=== PATIENT | female | born 1965 | race African-American/Black ===

== ENCOUNTER 2017-12-18 11:47 | Inpatient (IN) | payer BC, OTHER ==
[2017-12-11 14:03] VITALS: BMI 36.9
[2017-12-18] MEDS ORDERED: VANCOMYCIN 1,000 MG VIAL (RESTRICTED TO ID ONLY) ONE (13:56)
[2017-12-18] MEDS ORDERED: TRANEXAMIC ACID 1000 MG/10 ML VIAL ONE ×2 (13:56→18:43)
[2017-12-18] MEDS ORDERED: ceFAZolin SODIUM 1 GM VIAL ONE ×2 (13:56→18:42)
[2017-12-18] MEDS ORDERED: ONDANSETRON 4 MG/2 ML VIAL ONE (13:56)
[2017-12-18] MEDS ORDERED: DEXAMETHASONE SOD PHOSPHATE/PF 10 MG/ML SDV ONE (13:59)
[2017-12-18] MEDS ORDERED: BUPIVACAINE HCL/PF (5 MG/ML) 30 ML VIAL IJ ONE ×2 (14:00→15:04)
[2017-12-18] MEDS ORDERED: MIDAZOLAM HCL 2 MG/2 ML SINGLE DOSE VIAL ONE ×2 (14:00→15:04)
[2017-12-18] MEDS ORDERED: BUPIVACAINE LIPOSOME/PF (EXPAREL) 266 MG/20 ML VIAL ONE (15:04)
[2017-12-18] MEDS ORDERED: PROPOFOL 20 ML ONE ×2 (16:49→17:54)
[2017-12-18] MEDS ORDERED: oxyCODONE HCL 5 MG TABLET PO PRN (16:51)
[2017-12-18] MEDS ORDERED: MAGNESIUM HYDROX 2400MG/30ML ORAL SUSPENSION 30 ML CUP PO PRN (18:54)
[2017-12-18] MEDS ORDERED: ONDANSETRON 4 MG/2 ML VIAL IVPUSH PRN (18:54)
[2017-12-18] MEDS ORDERED: MAG HYDROX/AL HYDROX/SIMETH 30 ML UNIT-DOSE CUP PO PRN (18:54)
[2017-12-18] MEDS ORDERED: LACTATED RINGERS SOLUTION 1,000 ML IV SCH (19:00)
--- NOTE | 2017-12-18 19:05 | PN ---
Progress Note (short form) - Note Progress Note: Surgery S/P R TKA POD #0 - Pain control. -DVT PPx: -Chemical: ASA 81 mg po BID x 6 weeks -Mechanical: SABINE's, SCD's -Incentive Spirometry. -PT/OT/Rehab, OOB. -WBAT RLE. -f/u drain output -f/u am labs. -Care per medical hospitalist team. 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 Abel George MD (Orthopaedic Surgery)
[2017-12-18] MEDS ORDERED: BENZOIN TINCTURE SWABSTICK TP ONE (19:17)
--- NOTE | 2017-12-18 20:39 | OP ---
DATE OF OPERATION: DATE OF DICTATION: 12/18/2017 SURGEON: Abel George M.D. MERCHANDISER: Wily George M.D., and Nara Chand PREOPERATIVE DIAGNOSIS: Tricompartment osteoarthritis right knee. POSTOPERATIVE DIAGNOSIS: Tricompartment osteoarthritis right knee. OPERATION PERFORMED: Right posterior stabilized total knee arthroplasty (Timur) subvastus approach. ANESTHESIA: Spinal with peripheral block and conscious sedation. ANTIBIOTICS GIVEN: 2 g Kefzol, 1 g vancomycin preoperative, 1 g Kefzol given at the time of release of tourniquet. TOURNIQUET TIME: 100 minutes. DESCRIPTION OF PROCEDURE: Patient was correctly identified, brought in operating room. Right lower extremity was prepped, pre-draped in the routine manner with Betadine scrub solution, wiped with alcohol, DuraPrep applied. The right knee was exposed via midline incision. Dissection was taken through the fascia to expose the entire quadriceps mechanism starting at the distal end of the tibial tubercle, coursing up along the medial parapatellar region alongside the medial aspect of the border of the patella ligament. The dissection was curved towards the posterior medial aspect of the femoral condyle towards the adductor canal and adductor hiatus. At that point, the fascia and epimysium were dissected sharply off the actual vastus medialis muscle. A plane created between the muscle and the capsule enabled sitting of a blunt Hohmann into this area, and the tissue deep to that which was the suprapatellar pouch and synovium of the pouch was extended longitudinally upwards to give easy access to subluxing the patella laterally over the lateral femoral condyle to gain exposure of the entire knee. Tricompartment osteoarthritis encountered. The jig cuts were made with the [employer] system. The patella was cut in accord with Johanna line from patella ligament to quadriceps tendon. The femur was cut with the jig system appropriately all cuts made to measure for size 5 and a 4 degrees varus, 3 degrees external rotation and size 5 femoral component was measured and cut appropriately. The tibia was cut to neutral. The flexion, extension gaps were measured at 16 mm. The tibia was finally prepared appropriately with the appropriate drill and winged punch. The entry point of the intramedullary jimmie for the femur was plugged with a bone plug. The tibia was seated, aligned to the tibial tubercle to insure that correct orientation of foot was enjoyed. Once we were satisfied with the trialing of all components, both the mechanical axis was restored to that of exactly in the mechanical axis. The bone was thoroughly lavaged. Cementing was done in 1 stage, femur size 5, tibia size 5, polyethylene liner after extra removal all cement that had been extruded and the tissue was thoroughly lavaged with a size 16 polyethylene with a TS posterior stabilized peg. The patella was a size 27 mm patella button, this was held in position until cement had cured as well. Patella tracking was excellent for the . Knee was brought into full extension, complete stability in both flexion and extension, indicating equal flexion extension gaps appropriately. The wounds were thoroughly lavaged again. Closure, the parapatellar tissues with 1 Vicryl, subcutaneous 1 and 2-0 Vicryl, skin 3-0 Monocryl with Steri-Strips. Drains, one 18-inch Hemovac to the medial side of the distal femur where the distal aspect of the dissection was performed to expose the vastus medialis. No complications. Excellent positioning clinically. Range of movement 0 to 120 degrees with no difficulty. MD MINDY Carter/[id number]
[2017-12-18] MEDS: oxyCODONE HCL 10 MG SUSTAINED ACTING TABLET PO SCH (21:58)
[2017-12-18] MEDS: SENNOSIDES/DOCUSATE COMBO (SENNA PLUS) TABLET (UD) PO SCH (21:59)
[2017-12-18] MEDS: ASCORBIC ACID 500 MG TABLET (FP) PO SCH (21:59)
[2017-12-18] MEDS ORDERED: GABAPENTIN 300 MG CAPSULE (FP) PO SCH (22:00)
[2017-12-18] MEDS: oxyCODONE HCL 5 MG TABLET PO PRN (22:01)
--- NOTE | 2017-12-18 23:47 | CONSULT ---
Consult Consult Specialty:: Hospital Medicine Referred by:: Dr. George Reason for Consultation:: Medical Management - History of Present Illness Chief Complaint: R- Knee pain History of Present Illness: This is a 52 y/o woman with a PMHx of HTN, Anemia, OA. Who was admitted to M/S floor after having elective surgery on her right knee. s/p R-TKR POD #0. Patient reports having chronic right knee pain that was so debilitating that she could not walk, prompting her to have surgery. Patient is AAOx3, reports having throbbing pain to her right knee. PS 8/10. Patient reports parasthesia to her right leg. Patient has eaten, and tolerated her meal. Patient has not voided, not having flatulence. Patient denies fever, chills, cough, SOB, CP, palpitations, N/V/D. dysuria. - History Source History Provided By: Patient Limitations to Obtaining History: No Limitations - Past Medical History Cardio/Vascular: Yes: HTN ...LMP: 09/09/17 ...: No Heme/Onc: Yes: Anemia Musculoskeletal: Yes: Osteoarthritis - Past Surgical History Past Surgical History: Yes: Hysterectomy Additional Surgical History: Myomectomy. Hysteroscopy. Nasal Sinus. Section - Alcohol/Substance Use Hx Alcohol Use: No History of Substance Use: reports: None - Smoking History Smoking history: Never smoked Have you smoked in the past 12 months: No - Social History Usual Living Arrangement: With Spouse ADL: Independent Occupation: Unemployed worked at the [employer] in the past History of Recent Travel: No Home Medications - Allergies Allergies/Adverse Reactions: Allergies Allergy/AdvReac Type Severity Reaction Status Date / Time No Known Allergies Allergy Verified 12/18/17 12:06 - Home Medications Home Medications: Ambulatory Orders Hydrochlorothiazide [Hctz -] 25 mg PO DAILY 07/01/17 Aspirin/Acetaminophen/Caffeine [Excedrin Extra Strength Caplet] 1 each PO ASDIR PRN 12/11/17 Family Disease History - Family Disease History Family Disease History: Heart Disease: Father (CHF), Mother (HTN, Stomach), CA: Mother Review of Systems - Review of Systems Constitutional: reports: No Symptoms Eyes: reports: No Symptoms HENT: reports: No Symptoms Neck: reports: No Symptoms Cardiovascular: reports: No Symptoms Respiratory: reports: No Symptoms Gastrointestinal: reports: No Symptoms Genitourinary: reports: No Symptoms Breasts: reports: No Symptoms Reported Musculoskeletal: reports: Joint Pain Integumentary: reports: No Symptoms Neurological: reports: Parasthesia Endocrine: reports: No Symptoms Hematology/Lymphatic: reports: No Symptoms Psychiatric: reports: No Symptoms Pain Intensity: 8 Physical Exam Vital Signs: Vital Signs Temperature 97.6 F 12/18/17 22:00 Pulse Rate 103 H 12/18/17 22:00 Respiratory Rate 20 12/18/17 22:00 Blood Pressure 150/88 12/18/17 22:00 O2 Sat by Pulse Oximetry (%) 100 12/18/17 20:05 Constitutional: Yes: Mild Distress, Obese Eyes: Yes: WNL, Conjunctiva Clear, EOM Intact, PERRL HENT: Yes: WNL, Atraumatic, Normocephalic Neck: Yes: WNL, Supple, Trachea Midline Cardiovascular: Yes: WNL, Regular Rate and Rhythm, S1, S2 Respiratory: Yes: WNL, Regular, CTA Bilaterally, On Nasal O2 Gastrointestinal: Yes: Soft, Abdomen, Obese, Hypoactive Bowel Sounds ...Rectal Exam: Yes: Deferred Breast(s): Yes: WNL Musculoskeletal: Yes: Other (Right knee pain, icepack) Edema: No Wound/Incision: Yes: Dressing Dry and Intact Neurological: Yes: WNL, Alert, Oriented, Cran Nerves II-XII Intact ...Motor Strength: LUE, LLE, RUE Psychiatric: Yes: WNL, Alert, Oriented Labs: Laboratory Results - last 24 hr 12/18/17 12:00 Urine HCG, Qual Negative Current Medications Generic Name Dose Route Start Last Admin Trade Name Freq PRN Reason Stop Dose Admin Acetaminophen 650 mg 12/18/17 17:00 12/19/17 04:16 Tylenol - PO 12/21/17 16:59 650 mg Q6H JOSE Administration Al Hydroxide/Mg Hydroxide 30 ml 12/18/17 18:54 Mylanta Oral Suspension - PO Q4H PRN DYSPEPSIA Ascorbic Acid 500 mg 12/18/17 22:00 12/18/17 21:59 Vitamin C - PO 500 mg BID JOSE Administration Aspirin 81 mg 12/19/17 10:00 Ecotrin - PO BID JOSE Ferrous Sulfate 325 mg 12/19/17 08:00 Feosol - PO BIDWM JOSE Hydrochlorothiazide 25 mg 12/19/17 10:00 Hctz - PO DAILY [facility] Hydromorphone HCl 1 mg 12/19/17 00:40 12/19/17 00:20 Dilaudid Injection - IVPB 1 mg Q4H PRN Administration BREAKTHROUGH PAIN Cefazolin Sodium/Dextrose 2 gm in 50 mls @ 200 mls/hr 12/19/17 00:30 00:14 Ancef 2 Gm Premixed Ivpb - IVPB 12/19/17 08:44 200 mls/hr Q8H JOSE Administration Lactated Ringer's 1,000 mls @ 125 mls/hr 12/18/17 19:00 12/18/17 20:00 Lactated Ringers Solution IV 12/19/17 06:00 125 mls/hr ASDIR JOSE Administration Magnesium Hydroxide 30 ml 12/18/17 18:54 Milk Of Magnesia - PO PRN PRN CONSTIPATION Multivitamins/Minerals/Vitamin C 1 tab 12/19/17 10:00 Tab-A-Vit - PO DAILY [facility] Ondansetron HCl 4 mg 12/18/17 18:54 Zofran Injection IVPUSH Q6H PRN NAUSEA Oxycodone HCl 5 mg 12/18/17 16:51 Roxicodone - PO Q3H PRN PAIN LEVEL 1-5 Oxycodone HCl 10 mg 12/18/17 16:51 12/19/17 04:15 Roxicodone - PO 10 mg Q3H PRN Administration PAIN LEVEL 6-10 Oxycodone HCl 10 mg 12/18/17 22:00 12/18/17 21:58 Oxycontin - PO 10 mg BID [facility] Administration Pantoprazole Sodium 40 mg 12/19/17 10:00 Protonix - PO DAILY [facility] Senna/Docusate Sodium 2 tablet 12/18/17 22:00 12/18/17 21:59 Pericolace - PO 2 tablet BID JOSE Administration Intake & Output 12/16/17 12/17/17 12/18/17 12/19/17 23:59 23:59 23:59 23:59 Intake Total 4500 Output Total 20 Balance 4480 Weight 120.202 kg Problem List - Problems (1) Status post total right knee replacement Assessment/Plan: continue ortho regimen monitor for neurovascular changes Continue pain meds Incentive spirometry Abduction pillow Code(s): Z96.651 - PRESENCE OF RIGHT ARTIFICIAL KNEE JOINT (2) HTN (hypertension) Assessment/Plan: Monitor BP Monitor renal function Continue HCTZ Low Na diet Code(s): I10 - ESSENTIAL (PRIMARY) HYPERTENSION (3) Anemia Assessment/Plan: Monitor CBC Will transfuse if Hgb < 7.0 Continue Ferrous Sulfate Code(s): D64.9 - ANEMIA, UNSPECIFIED Assessment/Plan This is a 52 y/o woman with a PMHx of HTN, OA, Anemia. s/p R-TKR Plan: Continue home meds Repeat CBC and BMP in am Abductor pillow Ortho following Incentive Spirometer Continue home meds FEN- PO fluids as tolerated, Replete lytes prn, Low Na Diet DVT ppx- OOB SCDs, Continue Asa Visit type - Emergency Visit Emergency Visit: No - New Patient This patient is new to me today: Yes Date on this admission: 12/18/17 - Critical Care Critical Care patient: No
[2017-12-19] MEDS ORDERED: HYDROmorphone HCL CARPU-JECT 1 MG/1 ML DISP.SYRIN ONE (00:11)
[2017-12-19] MEDS: ACETAMINOPHEN 325 MG TABLET (FP) PO SCH ×5 (00:14→17:41)
[2017-12-19] MEDS: CEFAZOLIN 2 GM/D5W 2 GM/50 ML ML IVPB SCH ×2 (00:14→08:08)
[2017-12-19] MEDS ORDERED: HYDROmorphone HCL CARPU-JECT 2 MG/1 ML DISP.SYRIN IVPB PRN (00:40)
[2017-12-19] MEDS: oxyCODONE HCL 5 MG TABLET PO PRN ×4 (04:15→20:13)
--- NOTE | 2017-12-19 07:24 | PN ---
Progress Note (short form) - Note Progress Note: POD #1 Alert. Sitting in chair at bedside. C/o incisional tenderness. Adequate pain control via meds as ordered. Hasn't ambulated yet. States her RLE still feels numb. Moving her toes...just doesn't feel comfortable/safe ambulating yet. Denies n/v/f/c, CP, palpitations or SOB. Last Vital Signs Temp Pulse Resp BP Pulse Ox 99.8 F H 94 H 19 145/65 99 12/19/17 06:00 18 06:00 18 06:00 18 06:00 12/19/17 07:09 Gen: alert. nad RLE: Ice pack in place. Dressing c/d/i. Hemovac with 80mL (sanguinous). No calf tanderness. Foot warm. Problem List - Problems (1) Status post total right knee replacement Assessment/Plan: S/P R TKA POD #1 - Pain control. -DVT PPx: -Chemical: ASA 81 mg po BID x 6 weeks -Mechanical: SABINE's, SCD's -Incentive Spirometry. -PT/OT/Rehab, OOB. -WBAT RLE. -f/u drain output -f/u am labs. -Care per medical hospitalist team. 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 Code(s): Z96.651 - PRESENCE OF RIGHT ARTIFICIAL KNEE JOINT
[2017-12-19] MEDS: FERROUS SO4 325 MG TABLET (FP) PO SCH ×2 (08:08→17:41)
[2017-12-19 08:16] LABS: HEMATOCRIT 33.5 % (32.4-45.2); HEMOGLOBIN 10.3 GM/dl (10.7-15.3); MCHC 30.8 g/dl (32.0-36.0); MEAN CELL VOLUME 64.7 fl (80-96); MEAN PLT VOLUME 8.7 fl (7.5-11.1); PLATELET COUNT 350 K/MM3 (134-434); RBC 5.18 M/mm3 (3.60-5.2); RDW 18.9 % (11.6-15.6); WHITE BLOOD COUNT 14.6 K/mm3 (4.0-10.8)
[2017-12-19 08:18] LABS: ANION GAP 8 MMOL/L (8-16); BLOOD UREA NITROGEN 16 mg/dl (7-18); CALCIUM 8.7 mg/dl (8.4-10.2); CHLORIDE 101 mmol/L (98-107); CO2 24 mmol/L (22-28); GLUCOSE,RANDOM 124 mg/dl (74-106); POTASSIUM 3.9 mmol/L (3.5-5.1); SODIUM 133 mmol/L (136-145)
[2017-12-19 08:21] LABS: MCH 19.9 pg (25.7-33.7)
--- NOTE | 2017-12-19 08:28 | PN ---
Physical Exam: SUBJECTIVE: Patient seen and examined, reports dull ache to right lower extremity. OBJECTIVE: patient is a 52 y/o, obese woman with a PMHx of HTN, Anemia, OA, patient is s/p right tkr, 12/18/17, Dr George spinal anesthesia. Vital Signs Period Temp Pulse Resp BP Sys/Russell Pulse Ox Last 24 Hr 97.6 F-99.8 F 83-103 12-20 141-155/65-98 97-100 GENERAL: The patient is awake, alert, and fully oriented, in no acute distress. HEAD: Normal with no signs of trauma. EYES: PERRL, extraocular movements intact, sclera anicteric, conjunctiva clear. No ptosis. ENT: Ears normal, nares patent, oropharynx clear without exudates, moist mucous membranes. NECK: Trachea midline, full range of motion, supple. LUNGS: Breath sounds equal, clear to auscultation bilaterally, no wheezes, no crackles, no accessory muscle use. HEART: Regular rate and rhythm, S1, S2 without murmur, rub or gallop. ABDOMEN: Soft, nontender, nondistended, normoactive bowel sounds, no guarding, no rebound, no hepatosplenomegaly, no masses. EXTREMITIES: 2+ pulses, warm, well-perfused, no edema. RIGHT LOWER EXTREMITY: dressing cdi, hemovac drain noted, serrous sang drainage 80ml within the past 12 hours NEUROLOGICAL: Cranial nerves II through XII grossly intact. Normal speech, gait not observed. PSYCH: Normal mood, normal affect. SKIN: Warm, dry, normal turgor, no rashes or lesions noted Laboratory Results - last 24 hr 12/18/17 12/19/17 12/19/17 12:00 07:44 07:44 WBC 14.6 H RBC 5.18 Hgb 10.3 L Hct 33.5 MCV 64.7 L MCH 19.9 L MCHC 30.8 L RDW 18.9 H Plt Count 350 MPV 8.7 Sodium 133 L Potassium 3.9 Chloride 101 Carbon Dioxide 24 Anion Gap 8 BUN 16 Creatinine 1.0 Creat Clearance w eGFR 57.78 Random Glucose 124 H Calcium 8.7 Urine HCG, Qual Negative Active Medications Generic Name Dose Route Start Last Admin Trade Name Freq PRN Reason Stop Dose Admin Acetaminophen 650 mg 12/18/17 17:00 12/19/17 04:16 Tylenol - PO 12/21/17 16:59 650 mg Q6H JOSE Administration Al Hydroxide/Mg Hydroxide 30 ml 12/18/17 18:54 Mylanta Oral Suspension - PO Q4H PRN DYSPEPSIA Ascorbic Acid 500 mg 12/18/17 22:00 12/18/17 21:59 Vitamin C - PO 500 mg BID [facility] Administration Aspirin 81 mg 12/19/17 10:00 Ecotrin - PO BID [facility] Ferrous Sulfate 325 mg 12/19/17 08:00 12/19/17 08:08 Feosol - PO 325 mg BIDWM [facility] Administration Hydrochlorothiazide 25 mg 12/19/17 10:00 Hctz - PO DAILY [facility] Hydromorphone HCl 1 mg 12/19/17 00:40 12/19/17 00:20 Dilaudid Injection - IVPB 1 mg Q4H PRN Administration BREAKTHROUGH PAIN Cefazolin Sodium/Dextrose 2 gm in 50 mls @ 200 mls/hr 12/19/17 00:30 08:08 Ancef 2 Gm Premixed Ivpb - IVPB 12/19/17 08:44 200 mls/hr Q8H [facility] Administration Magnesium Hydroxide 30 ml 12/18/17 18:54 Milk Of Magnesia - PO PRN PRN CONSTIPATION Multivitamins/Minerals/Vitamin C 1 tab 12/19/17 10:00 Tab-A-Vit - PO DAILY [facility] Ondansetron HCl 4 mg 12/18/17 18:54 Zofran Injection IVPUSH Q6H PRN NAUSEA Oxycodone HCl 5 mg 12/18/17 16:51 Roxicodone - PO Q3H PRN PAIN LEVEL 1-5 Oxycodone HCl 10 mg 12/18/17 16:51 12/19/17 04:15 Roxicodone - PO 10 mg Q3H PRN Administration PAIN LEVEL 6-10 Oxycodone HCl 10 mg 12/18/17 22:00 12/18/17 21:58 Oxycontin - PO 10 mg BID [facility] Administration Pantoprazole Sodium 40 mg 12/19/17 10:00 Protonix - PO DAILY [facility] Senna/Docusate Sodium 2 tablet 12/18/17 22:00 12/18/17 21:59 Pericolace - PO 2 tablet BID [facility] Administration ASSESSMENT/PLAN: 1) MS s/p right tkr - prn pain medication - physical therapy as per ortho - monitor hemovac drainage, stict i/o 2) cardiovascular hypertension - b/p at goal, continue hctz 2) heme - repeat hgb 10, close following disp: will follow thank you for this consultative opportunity Visit type - Emergency Visit Emergency Visit: No - New Patient This patient is new to me today: Yes Date on this admission: 12/19/17 - Critical Care Critical Care patient: No - Discharge Referral Referred to [facility] Med P.C.: No
[2017-12-19] MEDS: ASCORBIC ACID 500 MG TABLET (FP) PO SCH ×2 (09:00→21:54)
[2017-12-19] MEDS: ASPIRIN COATED 81 MG TABLET.EC PO SCH ×2 (09:00→21:53)
[2017-12-19] MEDS: oxyCODONE HCL 10 MG SUSTAINED ACTING TABLET PO SCH ×2 (09:01→22:52)
[2017-12-19] MEDS: MULTIVITAMINS (DAILY MVI) TABLET (FP) PO SCH (09:01)
[2017-12-19] MEDS: HYDROCHLOROTHIAZIDE 25 MG TABLET (FP) PO SCH (09:01)
[2017-12-19] MEDS: SENNOSIDES/DOCUSATE COMBO (SENNA PLUS) TABLET (UD) PO SCH ×2 (09:01→21:54)
[2017-12-19] MEDS: PANTOPRAZOLE 40 MG TABLET (FP) PO SCH (09:01)
--- NOTE | 2017-12-19 15:13 | PN ---
Progress Note (short form) - Note Progress Note: 52F POD1 s/p R TKR under spinal anesthetic with peripheral nerve blocks for post operative pain relief. Pt states that she has moderate amount of pain, does not report any anesthetic complications. AVSS. Motor and sensory exam intact in bilateral lower extremities. Continue current regimen.
[2017-12-20] MEDS: ACETAMINOPHEN 325 MG TABLET (FP) PO SCH ×5 (01:15→23:03)
[2017-12-20] MEDS: oxyCODONE HCL 5 MG TABLET PO PRN ×2 (06:24→17:45)
--- NOTE | 2017-12-20 07:27 | PN ---
Progress Note (short form) - Note Progress Note: POD #2 Alert. Sitting in chair at bedside. C/o incisional tenderness. Adequate pain control via meds as ordered. Ambulating with PT. PT notes: Extension lacks 10-15 deg. Flex to ~85. Performed wade, heel slides, SLR, TKE, LAQ, heel/toe raises, ham curls and roderick well. Ice applied. Denies n/v/ f/c, CP, palpitations or SOB. Last Vital Signs Temp Pulse Resp BP Pulse Ox 99.7 F H 103 H 18 123/62 93 L 12/20/17 06:00 12/20/17 02:00 12/20/17 06:00 12/20/17 06:00 12/20/17 06:00 CBC, BMP 12/19/17 07:44 12/19/17 07:44 Gen: alert. nad RLE: Ice pack in place. Dressing c/d/i. Hemovac 260mL/24hrs (sanguinous). No calf tanderness. Foot warm. Problem List - Problems (1) Status post total right knee replacement Assessment/Plan: S/P R TKA POD #2 - Pain control. -DVT PPx: -Chemical: ASA 81 mg po BID x 6 weeks -Mechanical: SABINE's, SCD's -Incentive Spirometry. -PT/OT/Rehab, OOB. -WBAT RLE. -f/u drain output -f/u am labs. -Care per medical hospitalist team. 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 Code(s): Z96.651 - PRESENCE OF RIGHT ARTIFICIAL KNEE JOINT Problem List - Problems (1) Status post total right knee replacement Code(s): Z96.651 - PRESENCE OF RIGHT ARTIFICIAL KNEE JOINT
[2017-12-20 07:51] LABS: HEMATOCRIT 30.9 % (32.4-45.2); HEMOGLOBIN 9.8 GM/dl (10.7-15.3); MCH 20.4 pg (25.7-33.7); MCHC 31.6 g/dl (32.0-36.0); MEAN CELL VOLUME 64.5 fl (80-96); MEAN PLT VOLUME 8.6 fl (7.5-11.1); PLATELET COUNT 325 K/MM3 (134-434); RBC 4.79 M/mm3 (3.60-5.2); RDW 18.7 % (11.6-15.6); WHITE BLOOD COUNT 14.7 K/mm3 (4.0-10.8)
[2017-12-20] MEDS: FERROUS SO4 325 MG TABLET (FP) PO SCH ×2 (08:15→17:44)
[2017-12-20] MEDS: ASCORBIC ACID 500 MG TABLET (FP) PO SCH ×2 (09:17→21:14)
[2017-12-20] MEDS: ASPIRIN COATED 81 MG TABLET.EC PO SCH ×2 (09:17→21:14)
[2017-12-20] MEDS: PANTOPRAZOLE 40 MG TABLET (FP) PO SCH (09:17)
[2017-12-20] MEDS: SENNOSIDES/DOCUSATE COMBO (SENNA PLUS) TABLET (UD) PO SCH ×2 (09:17→21:14)
[2017-12-20] MEDS: MULTIVITAMINS (DAILY MVI) TABLET (FP) PO SCH (09:17)
[2017-12-20] MEDS: oxyCODONE HCL 10 MG SUSTAINED ACTING TABLET PO SCH ×2 (09:17→21:14)
[2017-12-20] MEDS: HYDROCHLOROTHIAZIDE 25 MG TABLET (FP) PO SCH (09:18)
--- NOTE | 2017-12-20 11:09 | PN ---
Physical Exam: SUBJECTIVE: Patient seen and examined, patient is sitting in bedside recliner reports minimal pain to the right lower extremity. OBJECTIVE: patient is a 52 y/o, obese woman with a PMHx of HTN, Anemia, OA, patient is s/p right tkr, 12/18/17, Dr George spinal anesthesia. Vital Signs Period Temp Pulse Resp BP Sys/Russell Pulse Ox Last 24 Hr 98.1 F-99.7 F 103-122 18-18 119-143/60-70 93-95 GENERAL: The patient is obese, awake, alert, and fully oriented, in no acute distress. HEAD: Normal with no signs of trauma. EYES: PERRL, extraocular movements intact, sclera anicteric, conjunctiva clear. No ptosis. ENT: Ears normal, nares patent, oropharynx clear without exudates, moist mucous membranes. NECK: Trachea midline, full range of motion, supple. LUNGS: Breath sounds equal, clear to auscultation bilaterally, no wheezes, no crackles, no accessory muscle use. HEART: Regular rate and rhythm, S1, S2 without murmur, rub or gallop. ABDOMEN: Soft, nontender, nondistended, normoactive bowel sounds, no guarding, no rebound, no hepatosplenomegaly, no masses. EXTREMITIES: 2+ pulses, warm, well-perfused, no edema. RIGHT LOWER EXTREMITY: dressing cdi, hemovac drain noted, serrous sang drainage 260ml within the past 24 hours NEUROLOGICAL: Cranial nerves II through XII grossly intact. Normal speech, gait not observed. PSYCH: Normal mood, normal affect. SKIN: Warm, dry, normal turgor, no rashes or lesions noted Laboratory Results - last 24 hr 12/20/17 07:36 WBC 14.7 H RBC 4.79 Hgb 9.8 L Hct 30.9 L MCV 64.5 L MCH 20.4 L MCHC 31.6 L RDW 18.7 H Plt Count 325 MPV 8.6 Active Medications Generic Name Dose Route Start Last Admin Trade Name Freq PRN Reason Stop Dose Admin Acetaminophen 650 mg 12/18/17 17:00 12/20/17 06:24 Tylenol - PO 12/21/17 16:59 650 mg Q6H JOSE Administration Al Hydroxide/Mg Hydroxide 30 ml 12/18/17 18:54 Mylanta Oral Suspension - PO Q4H PRN DYSPEPSIA Ascorbic Acid 500 mg 12/18/17 22:00 12/20/17 09:17 Vitamin C - PO 500 mg BID JOSE Administration Aspirin 81 mg 12/19/17 10:00 12/20/17 09:17 Ecotrin - PO 81 mg BID JOSE Administration Ferrous Sulfate 325 mg 12/19/17 08:00 12/20/17 08:15 Feosol - PO 325 mg BIDWM JOSE Administration Hydrochlorothiazide 25 mg 12/19/17 10:00 12/20/17 09:18 Hctz - PO 25 mg DAILY JOSE Administration Hydromorphone HCl 1 mg 12/19/17 00:40 12/19/17 00:20 Dilaudid Injection - IVPB 1 mg Q4H PRN Administration BREAKTHROUGH PAIN Magnesium Hydroxide 30 ml 12/18/17 18:54 Milk Of Magnesia - PO PRN PRN CONSTIPATION Multivitamins/Minerals/Vitamin C 1 tab 12/19/17 10:00 12/20/17 09:17 Tab-A-Vit - PO 1 tab DAILY JOSE Administration Ondansetron HCl 4 mg 12/18/17 18:54 Zofran Injection IVPUSH Q6H PRN NAUSEA Oxycodone HCl 5 mg 12/18/17 16:51 Roxicodone - PO Q3H PRN PAIN LEVEL 1-5 Oxycodone HCl 10 mg 12/18/17 16:51 12/20/17 06:24 Roxicodone - PO 10 mg Q3H PRN Administration PAIN LEVEL 6-10 Oxycodone HCl 10 mg 12/18/17 22:00 12/20/17 09:17 Oxycontin - PO 10 mg BID JOSE Administration Pantoprazole Sodium 40 mg 12/19/17 10:00 12/20/17 09:17 Protonix - PO 40 mg DAILY JOSE Administration Senna/Docusate Sodium 2 tablet 12/18/17 22:00 12/20/17 09:17 Pericolace - PO 2 tablet BID [facility] Administration ASSESSMENT/PLAN: 1) MS s/p right tkr - prn pain medication - physical therapy as per ortho - a total of 260ml of serrous sangenous from hemovac within the past 24 hours, hemovac to remain in place until drainage is less than 30ml within 8 hours, discussed with Dr Abel George at bedside - continue to monitor hemovac drainage, stict i/o 2) cardiovascular hypertension - b/p at goal, continue hctz 2) heme - repeat hgb 9.8, close following disp: will follow thank you for this consultative opportunity Visit type - Emergency Visit Emergency Visit: No - New Patient This patient is new to me today: No - Critical Care Critical Care patient: No - Discharge Referral Referred to [facility] Med P.C.: No
[2017-12-20 17:13] LABS: PH,URINE 5.5 (4.5-8); URINE APPEARANCE Cloudy; URINE BILIRUBIN Negative (NEGATIVE); URINE COLOR Yellow; URINE GLUCOSE (UA) Negative (NEGATIVE); URINE KETONE Negative (NEGATIVE); URINE LEUK ESTERASE 1+ (NEGATIVE); URINE NITRITE Negative (NEGATIVE); URINE PROTEIN 1+ (NEGATIVE); URINE UROBILINOGEN 0.2 (0.2-1.0)
[2017-12-20 20:28] LABS: EPI CELLS FEW /HPF; URINE RBC 0-2 /hpf (0-3); URINE WBC 20-30 (0-5)
[2017-12-20 20:29] LABS: URINE BACTERIA 4+ /hpf (NEGATIVE); URINE TRICHOMONAS 1+
[2017-12-21] MEDS: ACETAMINOPHEN 325 MG TABLET (FP) PO SCH ×2 (05:20→10:47)
[2017-12-21] MEDS: FERROUS SO4 325 MG TABLET (FP) PO SCH ×2 (08:41→16:41)
[2017-12-21] MEDS: MULTIVITAMINS (DAILY MVI) TABLET (FP) PO SCH (10:46)
[2017-12-21] MEDS: SENNOSIDES/DOCUSATE COMBO (SENNA PLUS) TABLET (UD) PO SCH ×2 (10:46→22:07)
[2017-12-21] MEDS: HYDROCHLOROTHIAZIDE 25 MG TABLET (FP) PO SCH (10:47)
[2017-12-21] MEDS: ASPIRIN COATED 81 MG TABLET.EC PO SCH ×2 (10:47→22:07)
[2017-12-21] MEDS: PANTOPRAZOLE 40 MG TABLET (FP) PO SCH (10:47)
[2017-12-21] MEDS: ASCORBIC ACID 500 MG TABLET (FP) PO SCH ×2 (10:47→22:07)
[2017-12-21] MEDS: oxyCODONE HCL 10 MG SUSTAINED ACTING TABLET PO SCH ×2 (10:48→22:06)
[2017-12-21] MEDS: oxyCODONE HCL 5 MG TABLET PO PRN ×2 (13:26→22:17)
--- NOTE | 2017-12-21 15:53 | PN ---
Progress Note (short form) - Note Progress Note: POD#3 Feeling well No C/O pain Neurovascular status Normal no calf or subsartorian tenderness Bandage dry Drain removed PLAN D/C home tomorrow Pain mx [employer] FWBAT Home PT Leave dressing until seen in the office next week /[place]
--- NOTE | 2017-12-21 17:36 | PN ---
Physical Exam: SUBJECTIVE: Patient seen and examined OBJECTIVE: Vital Signs Period Temp Pulse Resp BP Sys/Russell Pulse Ox Last 24 Hr 98.9 F-99.8 F 106-114 17-19 115-142/59-71 93-95 GENERAL: The patient is awake, alert, and fully oriented, in no acute distress. HEAD: Normal with no signs of trauma. EYES: PERRL, extraocular movements intact, sclera anicteric, conjunctiva clear. No ptosis. ENT: Ears normal, nares patent, oropharynx clear without exudates, moist mucous membranes. NECK: Trachea midline, full range of motion, supple. LUNGS: Breath sounds equal, clear to auscultation bilaterally, no wheezes, no crackles, no accessory muscle use. HEART: Regular rate and rhythm, S1, S2 without murmur, rub or gallop. ABDOMEN: Soft, nontender, nondistended, normoactive bowel sounds, no guarding, no rebound, no hepatosplenomegaly, no masses. EXTREMITIES: 2+ pulses, warm, well-perfused, no edema. NEUROLOGICAL: Cranial nerves II through XII grossly intact. Normal speech, gait not observed. PSYCH: Normal mood, normal affect. SKIN: Warm, dry, normal turgor, no rashes or lesions noted Laboratory Results - last 24 hr 12/20/17 17:00 Urine RBC 0-2 Urine WBC 20-30 Ur Epithelial Cells Few Urine Bacteria 4+ Urine Trichomonas 1+ Active Medications Generic Name Dose Route Start Last Admin Trade Name Freq PRN Reason Stop Dose Admin Al Hydroxide/Mg Hydroxide 30 ml 12/18/17 18:54 Mylanta Oral Suspension - PO Q4H PRN DYSPEPSIA Ascorbic Acid 500 mg 12/18/17 22:00 12/21/17 10:47 Vitamin C - PO 500 mg BID JOSE Administration Aspirin 81 mg 12/19/17 10:00 12/21/17 10:47 Ecotrin - PO 81 mg BID JOSE Administration Ferrous Sulfate 325 mg 12/19/17 08:00 12/21/17 16:41 Feosol - PO 325 mg BIDWM JOSE Administration Hydrochlorothiazide 25 mg 12/19/17 10:00 12/21/17 10:47 Hctz - PO 25 mg DAILY JOSE Administration Hydromorphone HCl 1 mg 12/19/17 00:40 12/19/17 00:20 Dilaudid Injection - IVPB 1 mg Q4H PRN Administration BREAKTHROUGH PAIN Magnesium Hydroxide 30 ml 12/18/17 18:54 Milk Of Magnesia - PO PRN PRN CONSTIPATION Multivitamins/Minerals/Vitamin C 1 tab 12/19/17 10:00 12/21/17 10:46 Tab-A-Vit - PO 1 tab DAILY JOSE Administration Ondansetron HCl 4 mg 12/18/17 18:54 Zofran Injection IVPUSH Q6H PRN NAUSEA Oxycodone HCl 10 mg 12/18/17 22:00 12/21/17 10:48 Oxycontin - PO 10 mg BID JOSE Administration Pantoprazole Sodium 40 mg 12/19/17 10:00 12/21/17 10:47 Protonix - PO 40 mg DAILY JOSE Administration Senna/Docusate Sodium 2 tablet 12/18/17 22:00 12/21/17 10:46 Pericolace - PO 2 tablet BID JOSE Administration ASSESSMENT/PLAN: 1) MS s/p right tkr - prn pain medication - physical therapy as per ortho - a total of 260ml of serrous sangenous from hemovac within the past 24 hours, hemovac to remain in place until drainage is less than 30ml within 8 hours, discussed with Dr Abel George at bedside - continue to monitor hemovac drainage, stict i/o 2) cardiovascular hypertension - b/p at goal, continue hctz 2) heme - repeat hgb 9.8, close following
[2017-12-21] MEDS: ACETAMINOPHEN 325 MG TABLET (FP) PO PRN (22:06)
[2017-12-21] MEDS: KETOROLAC TROMETHAMINE 10 MG TABLET PO SCH (23:22)
[2017-12-22] MEDS: ACETAMINOPHEN 325 MG TABLET (FP) PO PRN (03:30)
[2017-12-22] MEDS: oxyCODONE HCL 5 MG TABLET PO PRN ×2 (03:30→08:10)
[2017-12-22 06:16] VITALS: BP 138/84; PULSE 107; TEMP 98.8
[2017-12-22] MEDS: KETOROLAC TROMETHAMINE 10 MG TABLET PO SCH (06:16)
[2017-12-22] MEDS: FERROUS SO4 325 MG TABLET (FP) PO SCH (08:10)
[2017-12-22] MEDS: ASPIRIN COATED 81 MG TABLET.EC PO SCH (09:26)
[2017-12-22] MEDS: SENNOSIDES/DOCUSATE COMBO (SENNA PLUS) TABLET (UD) PO SCH (09:27)
[2017-12-22] MEDS: oxyCODONE HCL 10 MG SUSTAINED ACTING TABLET PO SCH (09:27)
[2017-12-22] MEDS: PANTOPRAZOLE 40 MG TABLET (FP) PO SCH (09:27)
[2017-12-22] MEDS: HYDROCHLOROTHIAZIDE 25 MG TABLET (FP) PO SCH (09:27)
[2017-12-22] MEDS: ASCORBIC ACID 500 MG TABLET (FP) PO SCH (09:28)
[2017-12-22] MEDS: MULTIVITAMINS (DAILY MVI) TABLET (FP) PO SCH (09:28)
--- NOTE | 2017-12-22 11:11 | DS ---
"Physical Exam: SUBJECTIVE: Patient seen and examined OBJECTIVE: Vital Signs Period Temp Pulse Resp BP Sys/Russell Pulse Ox Last 24 Hr 98.4 F-99.0 F 101-108 17-20 115-143/59-84 93-97 PHYSICAL EXAM GENERAL: The patient is awake, alert, and fully oriented, in no acute distress. HEAD: Normal with no signs of trauma. EYES: PERRL, extraocular movements intact, sclera anicteric, conjunctiva clear. ENT: Ears normal, nares patent, oropharynx clear without exudates, moist mucous membranes. NECK: Trachea midline, full range of motion, supple. LUNGS: Breath sounds equal, clear to auscultation bilaterally, no wheezes, no crackles, no accessory muscle use. HEART: Regular rate and rhythm, S1, S2 without murmur, rub or gallop. ABDOMEN: Soft, nontender, nondistended, normoactive bowel sounds, no guarding, no rebound, no hepatosplenomegaly, no masses. EXTREMITIES: 2+ pulses, warm, well-perfused, no edema. NEUROLOGICAL: Cranial nerves II through XII grossly intact. Normal speech, gait not observed. PSYCH: Normal mood, normal affect. SKIN: Warm, dry, normal turgor, no rashes or lesions noted. LABS HOSPITAL COURSE: Date of Admission:12/18/17 Date of Discharge: 12/22/17 Minutes to complete discharge: 35 Discharge Summary Reason For Visit: UNILATERAL PRIMARY OA RT KNEE Current Active Problems Anemia (Acute) HTN (hypertension) (Acute) Status post total right knee replacement (Acute) Condition: Improved - Instructions Diet, Activity, Other Instructions: Dr. George Discharge Instructions for Knee Replacement Post Operative Instructions Physical activity Physical Therapist will come to your home for the first 5 days. You will be set up with outpatient PT at your first post-operative visit. Use assistive devices for ambulation at all times. Weight bearing as tolerated on your surgical side. Do not put pillow under knee. May put pillow under heel. Wound care Leave your surgical dressing in place. Do not change the dressing until seen by your surgeon in the office. No baths or showers. Do not submerge your incision. Do not apply any ointments or lotions to your incision. Please call the office if your dressing is soiled/dirty or is falling off. Apply Graduated Compression Stockings (TEDS) to both lower extremities - remove daily for hygiene ONLY. Diet There are no dietary restrictions. Eat healthy, high-fiber foods. Drink 6 to 8 glasses of liquid each day. This will assist in keeping your bowels are regular. Pain management Any pain prescription medication ordered should be taken as prescribed for moderate to severe pain. Do not take additional Tylenol while taking Percocet. Take Aspirin 81 mg two times a day for a total of 6 weeks to prevent blood clots. Call Dr. George for any of the following: Severe pain not relieved by medication Fever of 101 or higher Excessive bleeding or drainage on dressing Inability to urinate If you experience chest pain or shortness of breath, please seek emergency care immediately. Please call the office at to confirm your post-op appointment for the week following surgery. This report was requested by: Rhoda Schroeder | Reference #: [id number] Referrals: Abel George MD [Staff Physician] - Disposition: HOME - Home Medications Comprehensive Discharge Medication List: Ambulatory Orders Hydrochlorothiazide [Hctz -] 25 mg PO DAILY 07/01/17 Oxycodone HCl 5 mg PO Q6H #28 tablet MDD 4 12/22/17 This patient is new to me today: No Emergency Visit: No Critical Care patient: No - Discharge Referral Referred to [facility] No"
--- NOTE | 2017-12-24 16:26 | PATH ---
Surgical Pathology Report Patient Name: ARAM ZARAGOZA Med. Rec. #: [id number] /Age/Gender: 1965 (Age: 52) / F Account: [id number] Location: [facility] Taken: 12/18/2017 Received: 12/18/2017 Reported: 12/24/2017 Physicians: Abel George M.D. Specimen(s) Received RIGHT KNEE BONES Clinical History Unilateral primary osteoarthritis right knee Final Diagnosis KNEE BONES, RIGHT, TOTAL KNEE REPLACEMENT: DEGENERATIVE JOINT DISEASE. Electronically Signed Sarah Velasco M.D. Gross Description Received in formalin, labeled "right knee bones" are multiple portions of cartilage-capped bone and fibrofatty tissue having an aggregate are 15.5 x 11 x 2 cm. The articular surfaces appear granular and show areas of eburnation. Manager Balance sections are submitted in one cassette after decalcification. AE/12/20/2017 ebram/12/20/2017
== END 2017-12-22 15:10 | disposition home or self-care (01) | DRG 470 ==
LOC: FM/S 11:47
PROVIDERS: ADMIT Orthopaedic Surgery Orthopaedic Surgery of the Spine; ATTEND Orthopaedic Surgery Orthopaedic Surgery of the Spine
PROC: 0SRC0J9 Replacement of Right Knee Joint with Synthetic Substitute, Cemented, Open Approach (ICD-10-PCS; principal; 2017-12-18 17:05)
DX: M17.11 Unilateral primary osteoarthritis, right knee (principal); D64.9 Anemia, unspecified; I10 Essential (primary) hypertension; E66.9 Obesity, unspecified; Z68.37 Body mass index [BMI] 37.0-37.9, adult
CPT/HCPCS: 36415; 73560-TC-RT-FY; 80048; 81003; 81015; 84703; 85027; 87086; 88304-TC; 88311-TC; 93970-TC; 94760; 97116-GP; 97161-GP

== ENCOUNTER 2018-02-26 06:00 | Inpatient (IN) | payer BC ==
[2018-02-13 14:54] VITALS: BMI 39.4
[2018-02-26] MEDS ORDERED: SODIUM CHLORIDE 0.9% P/F 10 ML VIAL IJ ONE ×2 (06:43→07:17)
[2018-02-26] MEDS ORDERED: BUPIVACAINE LIPOSOME/PF (EXPAREL) 266 MG/20 ML VIAL ONE (06:43)
[2018-02-26] MEDS ORDERED: MIDAZOLAM HCL 2 MG/2 ML SINGLE DOSE VIAL ONE ×3 (06:43→09:48)
[2018-02-26] MEDS ORDERED: TRANEXAMIC ACID 1000 MG/10 ML VIAL ONE ×2 (07:17→10:49)
[2018-02-26] MEDS ORDERED: ceFAZolin SODIUM 1 GM VIAL ONE ×2 (07:17→10:49)
[2018-02-26] MEDS ORDERED: ONDANSETRON 4 MG/2 ML VIAL ONE (07:17)
[2018-02-26] MEDS ORDERED: DEXAMETHASONE SOD PHOSPHATE 4 MG/1 ML VIAL ONE (07:17)
[2018-02-26] MEDS ORDERED: SUCCINYLCHOLINE CHLORIDE 200 MG/10 ML VIAL ONE (07:23)
--- NOTE | 2018-02-26 07:24 | HP ---
History & Physical Update - History History: No Change - Physical Physical: No Change - Assessment Assessment: No Change - Plan Plan: No Change (Full H&P in chart from 02/06/18)
[2018-02-26] MEDS ORDERED: BUPIVACAINE HCL/PF 0.5% (5MG/ML) 10 ML VIAL ONE (07:25)
[2018-02-26] MEDS ORDERED: oxyCODONE HCL 10 MG SUSTAINED ACTING TABLET PO ONE (07:26)
[2018-02-26] MEDS ORDERED: TRANEXAMIC ACID 1000 MG/10 ML VIAL IVPUSH ONE (07:26)
[2018-02-26] MEDS ORDERED: DEXMEDETOMIDINE HCL 200 MCG/2 ML ML IVPB ONE (07:41)
[2018-02-26] MEDS ORDERED: PROPOFOL 20 ML ONE (08:57)
[2018-02-26] MEDS ORDERED: ONDANSETRON 4 MG/2 ML VIAL IVPUSH PRN ×3 (09:35→13:56)
[2018-02-26] MEDS ORDERED: ACETAMINOPHEN 325 MG TABLET (FP) PO PRN (09:35)
[2018-02-26] MEDS ORDERED: IBUPROFEN 600 MG TABLET (FP) PO PRN (09:35)
[2018-02-26] MEDS ORDERED: LACTATED RINGERS SOLUTION 1,000 ML IV SCH (11:15)
[2018-02-26] MEDS ORDERED: MAG HYDROX/AL HYDROX/SIMETH 30 ML UNIT-DOSE CUP PO PRN (11:15)
[2018-02-26] MEDS ORDERED: MAGNESIUM HYDROX 2400MG/30ML ORAL SUSPENSION 30 ML CUP PO PRN (11:15)
--- NOTE | 2018-02-26 11:20 | PN ---
Progress Note (short form) - Note Progress Note: S/P L TKA POD #0 - Pain control. -DVT PPx: -Chemical: ASA 81 mg po BID x 6 weeks -Mechanical: SABINE's, SCD's -Incentive Spirometry. -PT/OT/Rehab, OOB. -WBAT LLE RLE. -f/u drain output -f/u am labs. -Care per medical hospitalist team. 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 Abel George MD (Orthopaedic Surgery)
[2018-02-26] MEDS ORDERED: BENZOIN/ALOE VERA/STORAX/TOLU 58 ML BOTTLE ONE (11:21)
--- NOTE | 2018-02-26 12:36 | OP ---
DATE OF OPERATION: SURGEON: Abel George MD ASSISTANTS: Wily George MD; Elias Lyon PA-C PREOPERATIVE DIAGNOSIS: Left tricompartment osteoarthritis, knee. POSTOPERATIVE DIAGNOSIS: Left tricompartment osteoarthritis, knee. OPERATION PERFORMED: Left cemented posterior stabilized total knee arthroplasty (Timur). ANESTHESIA: Conscious sedation with peripheral block and spinal anesthesia. ANTIBIOTICS GIVEN: Kefzol 2 g, 1 g vancomycin preoperatively, 1 g Kefzol given at the time of release of the tourniquet. TOURNIQUET TIME: An hour and 15 minutes. OPERATION DETAILS: Patient correctly identified, brought to the operating room. Lower extremity prepped free, draped in the routine manner with Betadine scrub solution, wiped off with alcohol, DuraPrep applied. Left lower extremity was free draped. Preoperative evaluation revealed a fixed varus deformity but no fixed flexion deformity. Range of movement on the table was 0 to about 90 degrees. Midline incision utilized. The dissection was taken through the skin and subcutaneous tissue to the level of the vastus medialis muscle. The soft tissue elements of the vastus medialis were lifted bringing about a complete freeing of the vastus all the way down to the linea aspera and the distal end of the femur. The continuation of the dissection was along the tibial tubercle on the medial aspect of the proximal tibial soft tissue elements and these were lifted directly off the bone bed using sharp dissection. The patellar fat pad was resected, probably 3/4 of the fat pad being resected accordingly. The patella was held and the 1st cut was a patellar cut made from patellar ligament to quadriceps tendon and the lollipop jig device placed for a 27-mm parapatellar button and the drill holes inserted appropriately for the patellar component. The knee was then flexed. The entire vastus, sub vastus approach enabled the quadriceps mechanism and lateral patella in 1 unit to be removed to be displaced laterally. Once this had been performed the tibia was subluxed forward. The 1st cut was the tibia. This was made with the extramedullary jig alignment from centered on to the tibial eminence to the center to the talus which gave us straight cut and measured for a size 6 tibial tray. The femur was cut in accordance with [place] lines of the epicondylar axis and the appropriate jig system seated and jig cuts made to provide a seating of the femoral component that measured size 5. This was for a Triathlon size 5 component and the external rotation was 4 degrees. The joint line was maintained at its anatomical position so 8 mm resected off the distal femur was resected and the femur was cut to 4 degrees in valgus. Once all cuts were made the trialing components were inserted, a size 5 femur, a size 6 tibia with a size 11-mm polyethylene spacer. Extension gaps were even at 11 mm. The stability of the coronal sagittal plane with this trialing was excellent. The patella tracked slightly abnormally and was inclined to sublux and a lateral release was performed which improved the situation completely. Once this had been performed and we were happy with the sizings all trial components were removed. The bone bed was thoroughly lavaged with pulsed lavage. Additional small holes were made in the bone bed because of the sclerotic bone quality. Cementing was in 1 stage with regular CMW cement. The cement was pumped into the interstices and the components then seated appropriately. A size 11-mm polyethylene posterior stabilized liner inserted. All extraneous cement was removed. Tracking of the patella was much improved with a negative thumb test. It tracked normally and the range of movement with the gravity fall test was from 0 to 120 degrees but complete stability in the coronal sagittal rotational plane both left- and right-hand side and the sagittal plane tested with an anterior and posterior drawer test. These were stable. The wounds again thoroughly lavaged. All extraneous cement and soft tissue removed. Soft closure: The soft tissue elements distally, that is of the tibia and the medial aspect of the soft tissues, were approximated with No. 1 Vicryl, subcutaneous 1 and 2-0 Vicryl, skin 3-0 Monocryl with Steri-Strips. Drainage: A 1/8-inch Hemovac to the medial distal aspect of the femur where the subvastus approach was performed. No complications. Operation went well. MD MINDY Carter/[id number] MTDD
--- NOTE | 2018-02-26 13:37 | CONSULT ---
Consultation: REQUESTING PROVIDER: CONSULT REQUEST: We have been asked to medically evaluate this patient for ( specify). HISTORY OF PRESENT ILLNESS: REVIEW OF SYSTEMS: CONSTITUTIONAL: Absent: fever, chills, diaphoresis, generalized weakness, malaise, loss of appetite, weight change HEENT: Absent: rhinorrhea, nasal congestion, throat pain, throat swelling, difficulty swallowing, mouth swelling, ear pain, eye pain, visual changes CARDIOVASCULAR: Absent: chest pain, syncope, palpitations, irregular heart rate, lightheadedness , peripheral edema RESPIRATORY: Absent: cough, shortness of breath, dyspnea with exertion, orthopnea, wheezing, stridor, hemoptysis GASTROINTESTINAL: Absent: abdominal pain, abdominal distension, nausea, vomiting, diarrhea, constipation, melena, hematochezia GENITOURINARY: Absent: dysuria, frequency, urgency, hesitancy, hematuria, flank pain, genital pain MUSCULOSKELETAL: Absent: myalgia, arthralgia, joint swelling, back pain, neck pain SKIN: Absent: rash, itching, pallor HEMATOLOGIC/IMMUNOLOGIC: Absent: easy bleeding, easy bruising, lymphadenopathy, frequent infections ENDOCRINE: Absent: unexplained weight gain, unexplained weight loss, heat intolerance, cold intolerance NEUROLOGIC: Absent: headache, focal weakness or paresthesias, dizziness, unsteady gait, seizure, mental status changes, bladder or bowel incontinence PSYCHIATRIC: Absent: anxiety, depression, suicidal or homicidal ideation, hallucinations. PHYSICAL EXAMINATION Vital Signs - 24 hr 02/26/18 02/26/18 02/26/18 06:55 12:00 12:05 Temperature 98.9 F 98.1 F 98.1 F Pulse Rate 96 H 81 79 Respiratory 18 19 19 Rate Blood Pressure 144/92 125/70 129/76 O2 Sat by Pulse 98 98 Oximetry (%) 02/26/18 02/26/18 02/26/18 12:10 12:15 12:30 Temperature 98.1 F 98.1 F 98.1 F Pulse Rate 80 81 79 Respiratory 19 17 17 Rate Blood Pressure 127/78 129/74 126/71 O2 Sat by Pulse 98 98 98 Oximetry (%) 02/26/18 02/26/18 12:45 13:00 Temperature 98.1 F 98.1 F Pulse Rate 78 81 Respiratory 17 17 Rate Blood Pressure 123/63 111/69 O2 Sat by Pulse 98 97 Oximetry (%) GENERAL: Awake, alert, and fully oriented, in no acute distress. HEAD: Normal with no signs of trauma. EYES: Pupils equal, round and reactive to light, extraocular movements intact, sclera anicteric, conjunctiva clear. No lid lag. EARS, NOSE, THROAT: Ears normal, nares patent, oropharynx clear without exudates. Moist mucous membranes. NECK: Normal range of motion, supple without lymphadenopathy, JVD, or masses. LUNGS: Breath sounds equal, clear to auscultation bilaterally. No wheezes, and no crackles. No accessory muscle use. HEART: Regular rate and rhythm, normal S1 and S2 without murmur, rub or gallop. ABDOMEN: Soft, nontender, not distended, normoactive bowel sounds, no guarding, no rebound, no masses. No hepatomegaly or splenomegaly. MUSCULOSKELETAL: Normal range of motion at all joints. No bony deformities or tenderness. No CVA tenderness. UPPER EXTREMITIES: 2+ pulses, warm, well-perfused. No cyanosis. No clubbing. Cap refill <2 seconds. No peripheral edema. LOWER EXTREMITIES: 2+ pulses, warm, well-perfused. No calf tenderness. No peripheral edema. NEUROLOGICAL: Cranial nerves II-XII intact. Normal speech. Normal gait. PSYCHIATRIC: Cooperative. Good eye contact. Appropriate mood and affect. SKIN: Warm, dry, normal turgor, no rashes or lesions noted. Laboratory Results - last 24 hr 02/26/18 06:30 Urine HCG, Qual Negative Active Medications Generic Name Dose Route Start Last Admin Trade Name Freq PRN Reason Stop Dose Admin Al Hydroxide/Mg Hydroxide 30 ml 02/26/18 11:15 Mylanta Oral Suspension - PO Q4H PRN DYSPEPSIA Aspirin 325 mg 02/26/18 22:00 Asa - PO BID JOSE Hydrochlorothiazide 25 mg 02/27/18 10:00 Hctz - PO DAILY JOSE Cefazolin Sodium 2 gm/ 50 mls @ 200 mls/hr 02/26/18 11:30 Dextrose IVPB 02/26/18 18:14 Q8H-IV JOSE Lactated Ringer's 1,000 mls @ 125 mls/hr 02/26/18 11:15 Lactated Ringers Solution IV 02/27/18 06:00 ASDIR JOSE Magnesium Hydroxide 30 ml 02/26/18 11:15 Milk Of Magnesia - PO PRN PRN CONSTIPATION Multivitamins/Minerals/Vitamin C 1 tab 02/27/18 10:00 Tab-A-Vit - PO DAILY [facility] Ondansetron HCl 4 mg 02/26/18 11:15 Zofran Injection IVPUSH Q6H PRN NAUSEA Pantoprazole Sodium 40 mg 02/27/18 10:00 Protonix - PO DAILY [facility] Senna/Docusate Sodium 2 tablet 02/26/18 22:00 Pericolace - PO BID [facility] ASSESSMENT/PLAN: Dispo: We will continue to follow the patient. Thank you for this consultative opportunity.
[2018-02-26] MEDS ORDERED: PROMETHAZINE HCL 25 MG/1 ML VIAL IVPUSH PRN (13:56)
[2018-02-26] MEDS ORDERED: oxyCODONE HCL 5 MG TABLET PO PRN (13:56)
[2018-02-26] MEDS: oxyCODONE HCL 5 MG TABLET PO PRN ×2 (17:09→21:23)
[2018-02-26] MEDS: CEFAZOLIN 2 GM/D5W 2 GM/50 ML ML IVPB SCH ×2 (17:10→19:25)
[2018-02-26] MEDS: CEFAZOLIN 2 GM in DEXTROSE 5%-WATER - 100 ML IVPB ONE (19:26)
--- NOTE | 2018-02-26 20:16 | CONSULT ---
Consult Consult Specialty:: Hospitalist Medicine Referred by:: Dr. George Reason for Consultation:: Medical Management - History of Present Illness Chief Complaint: L- Knee OA History of Present Illness: This is a 52 y/o woman with a PMHx of HTN, Anemia, OA. Who was admitted to [facility] after having elective surgery on her left knee. s/p L- TKA POD #0. Patient reports due to the chronic pain in her left knee she was having difficulty getting OOB and ambulating; she decided to have the surgery. Patient is AAOx3, she reports having pain to her left knee PS 5/10. Patient reports having full sensation and voiding. Patient denies N/V, no flatulence, no BM. Patient denies fever, chills, cough, SOB, CP, palpitations, dysuria. - History Source History Provided By: Patient Limitations to Obtaining History: No Limitations - Past Medical History Cardio/Vascular: Yes: HTN Gastrointestinal: Yes: GERD ...LMP: 09/09/17 Heme/Onc: Yes: Anemia Musculoskeletal: Yes: Osteoarthritis - Past Surgical History Past Surgical History: Yes: Arthrosocopy (Right Knee), Hysterectomy (ROHITH) Additional Surgical History: Myomectomy. Nasal - Alcohol/Substance Use Hx Alcohol Use: No History of Substance Use: reports: None - Smoking History Smoking history: Never smoked Have you smoked in the past 12 months: No - Social History Usual Living Arrangement: With Child ADL: Independent Occupation: Retired- worked at the [employer] History of Recent Travel: No Home Medications - Allergies Allergies/Adverse Reactions: Allergies Allergy/AdvReac Type Severity Reaction Status Date / Time No Known Allergies Allergy Verified 02/13/18 14:46 - Home Medications Home Medications: Ambulatory Orders Hydrochlorothiazide [Hctz -] 25 mg PO DAILY 07/01/17 Oxycodone HCl 5 mg PO Q6H #28 tablet MDD 4 12/22/17 Family Disease History - Family Disease History Family Disease History: Heart Disease: Father (CHF), Mother (HTN, Stomach), CA: Mother Review of Systems - Review of Systems Constitutional: reports: No Symptoms Eyes: reports: No Symptoms HENT: reports: No Symptoms Neck: reports: No Symptoms Cardiovascular: reports: No Symptoms Respiratory: reports: No Symptoms Gastrointestinal: reports: No Symptoms Genitourinary: reports: No Symptoms Breasts: reports: No Symptoms Reported Musculoskeletal: reports: Joint Pain (left knee) Integumentary: reports: No Symptoms Neurological: reports: No Symptoms Endocrine: reports: No Symptoms Hematology/Lymphatic: reports: No Symptoms Psychiatric: reports: No Symptoms Physical Exam Vital Signs: Vital Signs Temperature 98.2 F 02/26/18 18:44 Pulse Rate 108 H 02/26/18 18:44 Respiratory Rate 18 02/26/18 19:42 Blood Pressure 130/74 02/26/18 18:44 O2 Sat by Pulse Oximetry (%) 97 02/26/18 19:42 Constitutional: Yes: Well Nourished, No Distress, Calm Eyes: Yes: WNL, Conjunctiva Clear, EOM Intact, PERRL HENT: Yes: WNL, Atraumatic, Normocephalic Neck: Yes: WNL, Supple, Trachea Midline Cardiovascular: Yes: WNL, Regular Rate and Rhythm, S1, S2 Respiratory: Yes: WNL, Regular, CTA Bilaterally Gastrointestinal: Yes: WNL, Normal Bowel Sounds, Soft, Abdomen, Obese Renal/: Yes: WNL Breast(s): Yes: WNL Musculoskeletal: Yes: Other (L- knee: Bandage C/D/I Icepack Hemovac with bloody drainage TN to palpation, with swelling) Extremities: Yes: WNL Peripheral Pulses WNL: Yes Neurological: Yes: WNL, Alert, Oriented, Cran Nerves II-XII Intact ...Motor Strength: WNL Psychiatric: Yes: WNL, Alert, Oriented Labs: Laboratory Results - last 24 hr 02/26/18 06:30 Urine HCG, Qual Negative Intake & Output 02/24/18 02/25/18 02/26/18 02/27/18 23:59 23:59 23:59 23:59 Intake Total 1625 Output Total 455 Balance 1170 Weight 128.367 kg Current Medications Generic Name Dose Route Start Last Admin Trade Name Freq PRN Reason Stop Dose Admin Al Hydroxide/Mg Hydroxide 30 ml 02/26/18 11:15 Mylanta Oral Suspension - PO Q4H PRN DYSPEPSIA Aspirin 81 mg 02/26/18 22:00 02/26/18 21:24 Ecotrin - PO 81 mg BID JOSE Administration Fentanyl 50 mcg 02/26/18 13:56 Sublimaze Injection - IVPUSH [id number] PRN PAIN-PACU ORDER X 4 DOSES ONLY Hydrochlorothiazide 25 mg 02/27/18 10:00 Hctz - PO DAILY [facility] Lactated Ringer's 1,000 mls @ 125 mls/hr 02/26/18 11:15 02/26/18 19:25 Lactated Ringers Solution IV 02/27/18 06:00 Not Given ASDIR [facility] Magnesium Hydroxide 30 ml 02/26/18 11:15 Milk Of Magnesia - PO PRN PRN CONSTIPATION Multivitamins/Minerals/Vitamin C 1 tab 02/27/18 10:00 Tab-A-Vit - PO DAILY [facility] Ondansetron HCl 4 mg 02/26/18 11:15 Zofran Injection IVPUSH Q6H PRN NAUSEA Ondansetron HCl 4 mg 02/26/18 13:56 Zofran Injection IVPUSH Q6H PRN NAUSEA AND/OR VOMITING Oxycodone HCl 5 mg 02/26/18 13:56 Roxicodone - PO Q3H PRN PAIN LEVEL 1-5 Oxycodone HCl 10 mg 02/26/18 13:56 02/27/18 01:21 Roxicodone - PO 10 mg Q3H PRN Administration PAIN LEVEL 6-10 Oxycodone HCl 10 mg 02/26/18 22:00 02/26/18 21:23 Oxycontin - PO 03/01/18 13:56 10 mg BID [facility] Administration Pantoprazole Sodium 40 mg 02/27/18 10:00 Protonix - PO DAILY [facility] Promethazine HCl 12.5 mg 02/26/18 13:56 Phenergan Injection - IVPUSH Q6H PRN NAUSEA-FOR RESCUE AFTER 15 MIN Senna/Docusate Sodium 2 tablet 02/26/18 22:00 02/26/18 21:24 Pericolace - PO 2 tablet BID [facility] Administration Problem List - Problems (1) Status post total left knee replacement Assessment/Plan: Continue ortho regimen Monitor for neurovascular changes Continue pain meds Incentive spirometer PT Code(s): Z96.652 - PRESENCE OF LEFT ARTIFICIAL KNEE JOINT (2) Osteoarthritis Assessment/Plan: See above Code(s): M19.90 - UNSPECIFIED OSTEOARTHRITIS, UNSPECIFIED SITE (3) Anemia Assessment/Plan: Stable Will transfuse if Hgb < 7.0 Monitor CBC Code(s): D64.9 - ANEMIA, UNSPECIFIED (4) HTN (hypertension) Assessment/Plan: Controlled Monitor BP Continue home med Monitor renal function Code(s): I10 - ESSENTIAL (PRIMARY) HYPERTENSION (5) GERD (gastroesophageal reflux disease) Assessment/Plan: Continue PPI Code(s): K21.9 - GASTRO-ESOPHAGEAL REFLUX DISEASE WITHOUT ESOPHAGITIS Assessment/Plan This is a 52y/o woman with a PMHx of HTN, Anemia, OA, s/p L-TKR POD #0 Plan: See Problem List Ortho following Repeat CBC in am Incentive Spirometer Continue home meds FEN- PO fluids as tolerated, Replete lytes prn, Low Na Diet DVT ppx- OOB, SCDs, Continue Asa Visit type - Emergency Visit Emergency Visit: No - New Patient This patient is new to me today: Yes Date on this admission: 02/26/18 - Critical Care Critical Care patient: No
[2018-02-26] MEDS: oxyCODONE HCL 10 MG SUSTAINED ACTING TABLET PO SCH (21:23)
[2018-02-26] MEDS: SENNOSIDES/DOCUSATE COMBO (SENNA PLUS) TABLET (UD) PO SCH (21:24)
[2018-02-26] MEDS: ASPIRIN COATED 81 MG TABLET.EC PO SCH (21:24)
[2018-02-26] MEDS ORDERED: ASPIRIN 325 MG TABLET PO SCH (22:00)
[2018-02-27] MEDS: oxyCODONE HCL 5 MG TABLET PO PRN ×4 (01:21→17:17)
[2018-02-27] MEDS ORDERED: CEFAZOLIN 2 GM/D5W 2 GM/50 ML ML IVPB SCH (02:00)
[2018-02-27] MEDS: CEFAZOLIN 2 GM in DEXTROSE 5%-WATER - 100 ML IVPB ONE (07:07)
[2018-02-27] MEDS: CEFAZOLIN 2 GM/D5W 2 GM/50 ML ML IVPB SCH (07:07)
[2018-02-27 08:16] LABS: HEMATOCRIT 34.2 % (32.4-45.2); HEMOGLOBIN 10.6 GM/dl (10.7-15.3); MEAN CELL VOLUME 67.6 fl (80-96); MEAN PLT VOLUME 8.8 fl (7.5-11.1); PLATELET COUNT 365 K/MM3 (134-434); RBC 5.06 M/mm3 (3.60-5.2); RDW 20.3 % (11.6-15.6); WHITE BLOOD COUNT 17.2 K/mm3 (4.0-10.8)
[2018-02-27 08:26] LABS: ANION GAP 10 MMOL/L (8-16); BLOOD UREA NITROGEN 13 mg/dl (7-18); CALCIUM 8.8 mg/dl (8.4-10.2); CHLORIDE 100 mmol/L (98-107); CO2 24 mmol/L (22-28); CREATININE 0.9 mg/dl (0.6-1.3); GLUCOSE,RANDOM 123 mg/dl (74-106); MAGNESIUM 1.8 mg/dL (1.8-2.4); POTASSIUM 3.6 mmol/L (3.5-5.1); SODIUM 134 mmol/L (136-145)
[2018-02-27] MEDS: SENNOSIDES/DOCUSATE COMBO (SENNA PLUS) TABLET (UD) PO SCH ×2 (09:18→21:55)
[2018-02-27] MEDS: ASPIRIN COATED 81 MG TABLET.EC PO SCH ×2 (09:18→21:55)
[2018-02-27] MEDS: HYDROCHLOROTHIAZIDE 25 MG TABLET (FP) PO SCH (09:18)
[2018-02-27] MEDS: PANTOPRAZOLE 40 MG TABLET (FP) PO SCH (09:18)
[2018-02-27] MEDS: MULTIVITAMINS (DAILY MVI) TABLET (FP) PO SCH (09:18)
[2018-02-27] MEDS: oxyCODONE HCL 10 MG SUSTAINED ACTING TABLET PO SCH ×2 (09:19→21:55)
--- NOTE | 2018-02-27 10:01 | PN ---
Physical Exam: SUBJECTIVE: Patient seen and examined in recliner. 9/10 left knee pain. OBJECTIVE: Vital Signs Period Temp Pulse Resp BP Sys/Russell Pulse Ox Last 24 Hr 97.8 F-99.0 F 78-117 16-21 103-156/59-80 95-98 GENERAL: The patient is awake, alert, and fully oriented, in no acute distress. LUNGS: Breath sounds equal, clear to auscultation HEART: Regular rate and rhythm, S1, S2 ABDOMEN: Soft, nontender, nondistended LEFT LOWER EXTREMITY: SCDs, TEDs, surgical wrap c/d/i; 3/5 flexion/extension foot; sensory intact NEUROLOGICAL: Cranial nerves II through XII grossly intact. Normal speech, gait not observed. Laboratory Results - last 24 hr 02/27/18 02/27/18 07:35 07:35 WBC 17.2 H RBC 5.06 Hgb 10.6 L Hct 34.2 MCV 67.6 L MCH 21.0 L MCHC 31.0 L RDW 20.3 H Plt Count 365 MPV 8.8 Sodium 134 L Potassium 3.6 Chloride 100 Carbon Dioxide 24 Anion Gap 10 BUN 13 Creatinine 0.9 Creat Clearance w eGFR > 60 Random Glucose 123 H Calcium 8.8 Magnesium 1.8 Current Medications Generic Name Dose Route Start Last Admin Trade Name Freq PRN Reason Stop Dose Admin Acetaminophen 1,000 mg 02/27/18 16:20 Ofirmev Injection - IVPB Q6H PRN PAIN LEVEL 6-10 Al Hydroxide/Mg Hydroxide 30 ml 02/26/18 11:15 Mylanta Oral Suspension - PO Q4H PRN DYSPEPSIA Aspirin 81 mg 02/26/18 22:00 02/27/18 09:18 Ecotrin - PO 81 mg BID JOSE Administration Hydrochlorothiazide 25 mg 02/27/18 10:00 02/27/18 09:18 Hctz - PO 25 mg DAILY JOSE Administration Magnesium Hydroxide 30 ml 02/26/18 11:15 Milk Of Magnesia - PO PRN PRN CONSTIPATION Multivitamins/Minerals/Vitamin C 1 tab 02/27/18 10:00 02/27/18 09:18 Tab-A-Vit - PO 1 tab DAILY JOSE Administration Ondansetron HCl 4 mg 02/26/18 11:15 Zofran Injection IVPUSH Q6H PRN NAUSEA Ondansetron HCl 4 mg 02/26/18 13:56 Zofran Injection IVPUSH Q6H PRN NAUSEA AND/OR VOMITING Oxycodone HCl 5 mg 02/26/18 13:56 Roxicodone - PO Q3H PRN PAIN LEVEL 1-5 Oxycodone HCl 10 mg 02/26/18 13:56 02/27/18 13:29 Roxicodone - PO 10 mg Q3H PRN Administration PAIN LEVEL 6-10 Oxycodone HCl 10 mg 02/26/18 22:00 02/27/18 09:19 Oxycontin - PO 03/01/18 13:56 10 mg BID JOSE Administration Pantoprazole Sodium 40 mg 02/27/18 10:00 02/27/18 09:18 Protonix - PO 40 mg DAILY JOSE Administration Promethazine HCl 12.5 mg 02/26/18 13:56 Phenergan Injection - IVPUSH Q6H PRN NAUSEA-FOR RESCUE AFTER 15 MIN Senna/Docusate Sodium 2 tablet 02/26/18 22:00 02/27/18 09:18 Pericolace - PO 2 tablet BID JOSE Administration ASSESSMENT/PLAN: 52 year-old female with a PMH significant for HTN, anemia, osteoarthritis, s/p right TKR, and GERD. Admitted for Osteoarthritis of left knee s/p right total knee artroplasty on 02/26/18 --POD #1 --perioperative antibiotics per surgery --pain not well-controlled, add IV Tylenol q6h scheduled --ASA 81mg BID --protonix --bowel regimen --incentive spirometry --Hemovac drain, monitor output Anemia --h/h stble Hypertension --BP stable --continue HCTZ GERD --continue Protonix FEN Fluids: PO intake adequate Electrolytes: replete as indicated Nutrition: low sodium DVT prophylaxis: ASA 81mg BID, oob, ambulation, SCDs, TEDs Physical therapy Dispo: continues to require inpatient care. Full code. Visit type - Emergency Visit Emergency Visit: No - New Patient This patient is new to me today: Yes Date on this admission: 02/27/18 - Critical Care Critical Care patient: No
--- NOTE | 2018-02-27 11:33 | PN ---
Progress Note (short form) - Note Progress Note: POD #1 - s/p left total knee replacement under spinal anesthesia and peripheral nerve blocks for postop pain management. Pt. doing well, sitting up comfortably in chair with legs up. No complaints. Pain control is good - approximately 4-5/10. No apparent anesthetic complications noted. Continue current regimen.
--- NOTE | 2018-02-27 15:21 | PN ---
Progress Note (short form) - Note Progress Note: pOD#1 Pt seen earlier this am. Complaints of some pain behind her left knee. No CP/ SOB oob and ambulate to the restroom. Vital Signs Period Temp Pulse Resp BP Sys/Russell Pulse Ox Last 24 Hr 98.2 F-99.0 F 99-117 17-21 120-156/66-80 95-97 LENNIE:225 serosangrenous GEN: A&0x3, NAD CV: RR, tachycardic Lungs: CTA b/l LE: 5/5 dorsi/plantar flexion b/l. Able to straight leg raise on the right, weakness on the left. Dressing c/d/i. No calf tenderness or swelling noted b/l. CBC, BMP // 07:35 01// 07:35 A/p: 52 yo female s/p Left knee replacment, POD#1 Continue diet as tolerated Oob with assistance and PT DVT ppx with SCDs/ambulation and aspirin 81 mg BID Continue hemovac Pt with mild tachycardia, recheck HR 111. She states that her HR is usually in the high 90's. Will add tylenol IV for pain management. D/w Dr. George
[2018-02-27] MEDS: ACETAMINOPHEN 1000 MG/100 ML VIAL (NON FORMULARY) IVPB PRN ×2 (17:17→23:27)
[2018-02-27] MEDS ORDERED: ACETAMINOPHEN INJECTION 100 ML IVPB ONE (23:25)
[2018-02-28] MEDS: oxyCODONE HCL 5 MG TABLET PO PRN ×5 (01:11→16:12)
[2018-02-28] MEDS ORDERED: LORazepam 0.5 MG TABLET PO PRN (08:06)
[2018-02-28 08:13] LABS: BASO % 0.6 % (0-2.0); EOS % 1.1 % (0-4.5); HEMATOCRIT 33.5 % (32.4-45.2); HEMOGLOBIN 10.2 GM/dl (10.7-15.3); MCH 20.4 pg (25.7-33.7); MCHC 30.5 g/dl (32.0-36.0); MEAN CELL VOLUME 66.8 fl (80-96); MEAN PLT VOLUME 8.7 fl (7.5-11.1); MONO % 6.5 % (3.8-10.2); NEUT % 79.8 % (42.8-82.8); PLATELET COUNT 363 K/MM3 (134-434); RBC 5.01 M/mm3 (3.60-5.2); RDW 19.5 % (11.6-15.6); WHITE BLOOD COUNT 13.3 K/mm3 (4.0-10.8)
[2018-02-28 08:19] LABS: ADD RBC MORPHOLOGY YES
[2018-02-28 08:29] LABS: ANION GAP 7 MMOL/L (8-16); BLOOD UREA NITROGEN 12 mg/dl (7-18); CALCIUM 8.5 mg/dl (8.4-10.2); CHLORIDE 100 mmol/L (98-107); CO2 28 mmol/L (22-28); CREATININE 0.8 mg/dl (0.6-1.3); GLUCOSE,RANDOM 102 mg/dl (74-106); POTASSIUM 3.1 mmol/L (3.5-5.1); SODIUM 135 mmol/L (136-145)
[2018-02-28] MEDS: SENNOSIDES/DOCUSATE COMBO (SENNA PLUS) TABLET (UD) PO SCH ×2 (09:18→21:53)
[2018-02-28] MEDS: ASPIRIN COATED 81 MG TABLET.EC PO SCH ×2 (09:19→21:53)
[2018-02-28] MEDS: oxyCODONE HCL 10 MG SUSTAINED ACTING TABLET PO SCH ×2 (09:19→21:53)
[2018-02-28] MEDS: HYDROCHLOROTHIAZIDE 25 MG TABLET (FP) PO SCH (09:20)
[2018-02-28] MEDS: PANTOPRAZOLE 40 MG TABLET (FP) PO SCH (09:20)
[2018-02-28] MEDS: MULTIVITAMINS (DAILY MVI) TABLET (FP) PO SCH (09:20)
[2018-02-28] MEDS: POTASSIUM CHLORIDE TABS 20 MEQ TABLET.ER (FP) PO SCH ×2 (09:49→16:12)
--- NOTE | 2018-02-28 10:17 | DS ---
Physical Exam: SUBJECTIVE: Patient seen and examined OBJECTIVE: Vital Signs Temperature 98.6 F 02/28/18 06:42 Pulse Rate 129 H 02/28/18 06:42 Respiratory Rate 19 02/28/18 06:42 Blood Pressure 134/69 02/28/18 06:42 O2 Sat by Pulse Oximetry (%) 97 02/28/18 08:05 PHYSICAL EXAM GENERAL: The patient is awake, alert, and fully oriented, in no acute distress. HEAD: Normal with no signs of trauma. EYES: PERRL, extraocular movements intact, sclera anicteric, conjunctiva clear. ENT: Ears normal, nares patent, oropharynx clear without exudates, moist mucous membranes. NECK: Trachea midline, full range of motion, supple. LUNGS: Breath sounds equal, clear to auscultation bilaterally, no wheezes, no crackles, no accessory muscle use. HEART: Regular rate and rhythm, S1, S2 without murmur, rub or gallop. ABDOMEN: Soft, nontender, nondistended, normoactive bowel sounds, no guarding, no rebound, no hepatosplenomegaly, no masses. EXTREMITIES: 2+ pulses, warm, well-perfused, no edema. NEUROLOGICAL: Cranial nerves II through XII grossly intact. Normal speech, gait not observed. PSYCH: Normal mood, normal affect. SKIN: Warm, dry, normal turgor, no rashes or lesions noted. LABS CBC,CMP WBC 13.3 K/mm3 (4.0-10.8) H 02/28/18 07:45 RBC 5.01 M/mm3 (3.60-5.2) 02/28/18 07:45 Hgb 10.2 GM/dl (10.7-15.3) L 02/28/18 07:45 Hct 33.5 % (32.4-45.2) 02/28/18 07:45 MCV 66.8 fl (80-96) L 02/28/18 07:45 MCH 20.4 pg (25.7-33.7) L 02/28/18 07:45 MCHC 30.5 g/dl (32.0-36.0) L 02/28/18 07:45 RDW 19.5 % (11.6-15.6) H 02/28/18 07:45 Plt Count 363 K/MM3 (134-434) 02/28/18 07:45 MPV 8.7 fl (7.5-11.1) 02/28/18 07:45 Absolute Neuts (auto) 10.6 K/mm3 02/28/18 07:45 Neutrophils % 79.8 % (42.8-82.8) 02/28/18 07:45 Lymphocytes % 12.0 % (8-40) 02/28/18 07:45 Monocytes % 6.5 % (3.8-10.2) 02/28/18 07:45 Eosinophils % 1.1 % (0-4.5) 02/28/18 07:45 Basophils % 0.6 % (0-2.0) 02/28/18 07:45 Sodium 135 mmol/L (136-145) L 02/28/18 07:45 Potassium 3.1 mmol/L (3.5-5.1) L 02/28/18 07:45 Chloride 100 mmol/L (98-107) 02/28/18 07:45 Carbon Dioxide 28 mmol/L (22-28) 02/28/18 07:45 Anion Gap 7 MMOL/L (8-16) L 02/28/18 07:45 BUN 12 mg/dl (7-18) 02/28/18 07:45 Creatinine 0.8 mg/dl (0.6-1.3) 02/28/18 07:45 Creat Clearance w eGFR > 60 (>60) 02/28/18 07:45 Random Glucose 102 mg/dl (74-106) 02/28/18 07:45 Calcium 8.5 mg/dl (8.4-10.2) 02/28/18 07:45 Magnesium 1.8 mg/dL (1.8-2.4) 02/27/18 07:35 HOSPITAL COURSE: Date of Admission:02/26/18 Date of Discharge: 02/28/18
[2018-02-28 11:21] LABS: ANISOCYTOSIS 2+
--- NOTE | 2018-02-28 11:39 | EKG ---
Test Reason : Blood Pressure : / mmHG Vent. Rate : 111 BPM Atrial Rate : 111 BPM P-R Int : 142 ms QRS Dur : 094 ms QT Int : 320 ms P-R-T Axes : 060 003 022 degrees QTc Int : 435 ms SINUS TACHYCARDIA POSSIBLE LEFT ATRIAL ENLARGEMENT ANTERIOR INFARCT , AGE UNDETERMINED ABNORMAL ECG NO PREVIOUS ECGS AVAILABLE Confirmed by JUSTIN PEREZ, ISHA ([id number]) on 02/28/2018 11:39:08 AM Referred By: Abel George Confirmed By:ISHA ANDERSON MD
--- NOTE | 2018-02-28 12:38 | PN ---
Physical Exam: SUBJECTIVE: Patient seen and examined oob to chair. Earlier seen ambulating with PT. OBJECTIVE: Vital Signs Period Temp Pulse Resp BP Sys/Russell Pulse Ox Last 24 Hr 97.6 F-98.6 F 104-129 19-19 120-134/62-69 94-97 GENERAL: The patient is awake, alert, and fully oriented, in no acute distress. LUNGS: Breath sounds equal, clear to auscultation HEART: Regular rate and rhythm, S1, S2 ABDOMEN: Soft, nontender, nondistended LEFT LOWER EXTREMITY: SCDs, TEDs, surgical wrap c/d/i; 3/5 flexion/extension foot; sensory intact NEUROLOGICAL: Cranial nerves II through XII grossly intact. Normal speech, steady gait with walker Laboratory Results - last 24 hr 02/28/18 02/28/18 07:45 07:45 WBC 13.3 H RBC 5.01 Hgb 10.2 L Hct 33.5 MCV 66.8 L MCH 20.4 L MCHC 30.5 L RDW 19.5 H Plt Count 363 MPV 8.7 Absolute Neuts (auto) 10.6 Neutrophils % 79.8 Lymphocytes % 12.0 Monocytes % 6.5 Eosinophils % 1.1 Basophils % 0.6 Hypochromia 2+ Anisocytosis 2+ Microcytosis 1+ Sodium 135 L Potassium 3.1 L Chloride 100 Carbon Dioxide 28 Anion Gap 7 L BUN 12 Creatinine 0.8 Creat Clearance w eGFR > 60 Random Glucose 102 Calcium 8.5 Active Medications Generic Name Dose Route Start Last Admin Trade Name Freq PRN Reason Stop Dose Admin Acetaminophen 1,000 mg 02/27/18 16:20 02/27/18 23:27 Ofirmev Injection - IVPB 1,000 mg Q6H PRN Administration PAIN LEVEL 6-10 Al Hydroxide/Mg Hydroxide 30 ml 02/26/18 11:15 Mylanta Oral Suspension - PO Q4H PRN DYSPEPSIA Aspirin 81 mg 02/26/18 22:00 02/28/18 09:19 Ecotrin - PO 81 mg BID JOSE Administration Hydrochlorothiazide 25 mg 02/27/18 10:00 02/28/18 09:20 Hctz - PO 25 mg DAILY JOSE Administration Lorazepam 0.5 mg 02/28/18 08:06 Ativan - PO TID PRN ANXIETY Magnesium Hydroxide 30 ml 02/26/18 11:15 Milk Of Magnesia - PO PRN PRN CONSTIPATION Multivitamins/Minerals/Vitamin C 1 tab 02/27/18 10:00 02/28/18 09:20 Tab-A-Vit - PO 1 tab DAILY JOSE Administration Ondansetron HCl 4 mg 02/26/18 11:15 Zofran Injection IVPUSH Q6H PRN NAUSEA Ondansetron HCl 4 mg 02/26/18 13:56 Zofran Injection IVPUSH Q6H PRN NAUSEA AND/OR VOMITING Oxycodone HCl 5 mg 02/26/18 13:56 Roxicodone - PO Q3H PRN PAIN LEVEL 1-5 Oxycodone HCl 10 mg 02/26/18 13:56 02/28/18 09:18 Roxicodone - PO 10 mg Q3H PRN Administration PAIN LEVEL 6-10 Oxycodone HCl 10 mg 02/26/18 22:00 02/28/18 09:19 Oxycontin - PO 03/01/18 13:56 10 mg BID JOSE Administration Pantoprazole Sodium 40 mg 02/27/18 10:00 02/28/18 09:20 Protonix - PO 40 mg DAILY JOSE Administration Potassium Chloride 40 meq 02/28/18 09:30 02/28/18 09:49 K-Dur - PO 02/28/18 15:31 40 meq Q6H JOSE Administration Senna/Docusate Sodium 2 tablet 02/26/18 22:00 02/28/18 09:18 Pericolace - PO 2 tablet BID JOSE Administration ASSESSMENT/PLAN: 52 year-old female with a PMH significant for HTN, anemia, osteoarthritis, s/p right TKR, and GERD. Admitted for right total knee arthroplasty. Osteoarthritis of left knee s/p right total knee arthroplasty on 02/26/18 --POD #2 --perioperative antibiotics complete --pain better managed with Tylenol --ASA 81mg BID --protonix --bowel regimen --incentive spirometry --Hemovac drain pulled earlier today by surgery Anemia --h/h stable Hypertension Tachycardia --BP mildly elevated and tachycardic --metoprolol 25mg x 1 --continue HCTZ GERD --continue Protonix FEN Fluids: PO intake adequate Electrolytes: replete as indicated Nutrition: low sodium DVT prophylaxis: ASA 81mg BID, oob, ambulation, SCDs, TEDs Physical therapy Dispo: Thank you for this consultative opportunity. Full code. Visit type - Emergency Visit Emergency Visit: Yes ED Registration Date: 02/26/18 Care time: The patient presented to the Emergency Department on the above date and was hospitalized for further evaluation of their emergent condition. - New Patient This patient is new to me today: No - Critical Care Critical Care patient: No
[2018-02-28] MEDS ORDERED: METOPROLOL TARTRATE 50 MG TABLET (FP) PO STA (12:52)
--- NOTE | 2018-02-28 15:03 | PN ---
Progress Note (short form) - Note Progress Note: POD#2 Pt with complaints of pain behind her knee. Ambulating with PT, ROM 90 flexion. Having some discomfort with extension. No CP/SOB. Vital Signs Period Temp Pulse Resp BP Sys/Russell Pulse Ox Last 24 Hr 97.6 F-98.6 F 95-129 18-19 124-153/61-75 94-97 GEN: A&0x3, NAD CV: RR, mild tachycardia Lungs: CTA b/l Left leg: Dressing c/d/i. Mild swelling to the calf, no tenderness. Drain removed this am by JUDSON Natarajan. Dressing remains c/d/i. Teds stockings in place. 5/5 dorsi/plantar flexion b/l. Drain outpt-30/40ml serosangrenous. CBC, BMP 01/11/ 07:45 01/11/19 07:45 A/p: 52 yo male s/p Left Total knee replacement, POD#2 Continue OOB with PT Oral pain medications Stool softners Potassium repleted The pt remains tachycardic and slightly hypotensive today, spoke with the medical team and adding lopressor to her anti-hypertensive medications Duplex of lower ext to r/o DVT, mild swelling to the operative side as expected post-surgery and patient with persistent tachycardia. Continue aspirin 81mg bid for DVT ppx. CBC/chem for the am D/w. Dr. George
[2018-02-28] MEDS: METOPROLOL TARTRATE 25 MG TABLET (FP) PO SCH (21:53)
[2018-03-01] MEDS: oxyCODONE HCL 5 MG TABLET PO PRN (02:30)
[2018-03-01 09:32] LABS: BASO % 0.4 % (0-2.0); EOS % 2.3 % (0-4.5); HEMOGLOBIN 9.6 GM/dl (10.7-15.3); LYMPH % 15.8 % (8-40); MCH 20.8 pg (25.7-33.7); MCHC 31.1 g/dl (32.0-36.0); MEAN CELL VOLUME 66.9 fl (80-96); MEAN PLT VOLUME 8.7 fl (7.5-11.1); MONO % 6.6 % (3.8-10.2); NEUT % 74.9 % (42.8-82.8); PLATELET COUNT 345 K/MM3 (134-434); RBC 4.64 M/mm3 (3.60-5.2); RDW 19.6 % (11.6-15.6); WHITE BLOOD COUNT 13.6 K/mm3 (4.0-10.8)
[2018-03-01] MEDS: SENNOSIDES/DOCUSATE COMBO (SENNA PLUS) TABLET (UD) PO SCH (10:14)
[2018-03-01] MEDS: ASPIRIN COATED 81 MG TABLET.EC PO SCH (10:14)
[2018-03-01] MEDS: oxyCODONE HCL 10 MG SUSTAINED ACTING TABLET PO SCH (10:14)
[2018-03-01] MEDS: HYDROCHLOROTHIAZIDE 25 MG TABLET (FP) PO SCH (10:14)
[2018-03-01] MEDS: METOPROLOL TARTRATE 25 MG TABLET (FP) PO SCH (10:15)
[2018-03-01] MEDS: PANTOPRAZOLE 40 MG TABLET (FP) PO SCH (10:15)
[2018-03-01] MEDS: MULTIVITAMINS (DAILY MVI) TABLET (FP) PO SCH (10:15)
--- NOTE | 2018-03-01 10:24 | DS ---
Physical Exam: SUBJECTIVE: Patient seen and examined oob to chair. Pain is well-managed. OBJECTIVE: Vital Signs Period Temp Pulse Resp BP Sys/Russell Pulse Ox Last 24 Hr 98.3 F-98.9 F 101-118 16-20 109-153/53-67 95-98 PHYSICAL EXAM GENERAL: The patient is awake, alert, and fully oriented, in no acute distress. LUNGS: Breath sounds equal, clear to auscultation HEART: Regular rate and rhythm, S1, S2 ABDOMEN: Soft, nontender, nondistended LEFT LOWER EXTREMITY: SCDs, TEDs, surgical wrap c/d/i; 3/5 flexion/extension foot; sensory intact NEUROLOGICAL: Cranial nerves II through XII grossly intact. Normal speech, steady gait with walker LABS Laboratory Results - last 24 hr 02/28/18 03/01/18 07:45 08:15 WBC 13.6 H RBC 4.64 Hgb 9.6 L Hct 31.0 L MCV 66.9 L MCH 20.8 L MCHC 31.1 L RDW 19.6 H Plt Count 345 MPV 8.7 Absolute Neuts (auto) 10.2 Neutrophils % 74.9 Lymphocytes % 15.8 Monocytes % 6.6 Eosinophils % 2.3 Basophils % 0.4 Hypochromia 2+ Anisocytosis 2+ Microcytosis 1+ HOSPITAL COURSE: Date of Admission:02/26/18 Date of Discharge: 03/01/18 Hospital course by problem list 52 year-old female with a PMH significant for HTN, anemia, osteoarthritis, s/p right TKR, and GERD. Admitted for right total knee arthroplasty. Osteoarthritis of left knee s/p right total knee arthroplasty on 02/26/18 --POD #3 date of discharge --perioperative antibiotics complete --pain well-controlled with PO meds --ASA 81mg BID x 6 weeks --protonix --bowel regimen --incentive spirometry Anemia --h/h stable Hypertension Tachycardia --BP mildly elevated and tachycardic; started on metoprolol 12.5mg BID --continued HCTZ GERD --continued Protonix Minutes to complete discharge: 35 Discharge Summary Reason For Visit: OA LEFT KNEE Current Active Problems GERD (gastroesophageal reflux disease) (Acute) Osteoarthritis (Acute) Status post total left knee replacement (Acute) Condition: Improved - Instructions Diet, Activity, Other Instructions: Dr. George Discharge Instructions for Knee Replacement Post Operative Instructions Physical activity Physical Therapist will come to your home for the first 5 days. You will be set up with outpatient PT at your first post-operative visit. Use assistive devices for ambulation at all times. Weight bearing as tolerated on your surgical side. Do not put pillow under knee. May put pillow under heel. Wound care Leave your surgical dressing in place. Do not change the dressing until seen by your surgeon in the office. No baths or showers. Do not submerge your incision. Do not apply any ointments or lotions to your incision. Please call the office if your dressing is soiled/dirty or is falling off. Apply Graduated Compression Stockings (TEDS) to both lower extremities - remove daily for hygiene ONLY. Diet There are no dietary restrictions. Eat healthy, high-fiber foods. Drink 6 to 8 glasses of liquid each day. This will assist in keeping your bowels are regular. Pain management Any pain prescription medication ordered should be taken as prescribed for moderate to severe pain. Do not take additional Tylenol while taking Percocet. Take Aspirin 81 mg two times a day for a total of 6 weeks to prevent blood clots. Call Dr. George for any of the following: Severe pain not relieved by medication Fever of 101 or higher Excessive bleeding or drainage on dressing Inability to urinate If you experience chest pain or shortness of breath, please seek emergency care immediately. ISTOP: Oxycodone-Acetaminophen 5-325mg quantity 120pills for 30day supply filled 01/27/18 (RX written by Dr Abel George) Please call the office at to confirm your post-op appointment for the week following surgery. Referrals: Wily George MD [Staff Physician] - Disposition: HOME - Home Medications Comprehensive Discharge Medication List: Ambulatory Orders Hydrochlorothiazide [Hctz -] 25 mg PO DAILY 07/01/17 Oxycodone HCl 5 mg PO Q6H #28 tablet MDD 4 12/22/17 Aspirin Coated [Ecotrin -] 81 mg PO BID #90 tablet.ec 02/28/18 Docusate Sodium [Colace -] 100 mg PO BID #20 capsule 02/28/18 This patient is new to me today: No Emergency Visit: No Critical Care patient: No - Discharge Referral Referred to [facility] Med P.C.: No
--- NOTE | 2018-03-01 12:07 | PN ---
Physical Exam: SUBJECTIVE: Patient seen and examined OBJECTIVE: Vital Signs Period Temp Pulse Resp BP Sys/Russell Pulse Ox Last 24 Hr 98.3 F-98.9 F 101-118 16-20 109-153/53-67 95-98 GENERAL: The patient is awake, alert, and fully oriented, in no acute distress. HEAD: Normal with no signs of trauma. EYES: PERRL, extraocular movements intact, sclera anicteric, conjunctiva clear. No ptosis. ENT: Ears normal, nares patent, oropharynx clear without exudates, moist mucous membranes. NECK: Trachea midline, full range of motion, supple. LUNGS: Breath sounds equal, clear to auscultation bilaterally, no wheezes, no crackles, no accessory muscle use. HEART: Regular rate and rhythm, S1, S2 without murmur, rub or gallop. ABDOMEN: Soft, nontender, nondistended, normoactive bowel sounds, no guarding, no rebound, no hepatosplenomegaly, no masses. EXTREMITIES: 2+ pulses, warm, well-perfused, no edema. NEUROLOGICAL: Cranial nerves II through XII grossly intact. Normal speech, gait not observed. PSYCH: Normal mood, normal affect. SKIN: Warm, dry, normal turgor, no rashes or lesions noted Laboratory Results - last 24 hr 03/01/18 08:15 WBC 13.6 H RBC 4.64 Hgb 9.6 L Hct 31.0 L MCV 66.9 L MCH 20.8 L MCHC 31.1 L RDW 19.6 H Plt Count 345 MPV 8.7 Absolute Neuts (auto) 10.2 Neutrophils % 74.9 Lymphocytes % 15.8 Monocytes % 6.6 Eosinophils % 2.3 Basophils % 0.4 Active Medications Generic Name Dose Route Start Last Admin Trade Name Freq PRN Reason Stop Dose Admin Acetaminophen 1,000 mg 02/27/18 16:20 02/27/18 23:27 Ofirmev Injection - IVPB 1,000 mg Q6H PRN Administration PAIN LEVEL 6-10 Al Hydroxide/Mg Hydroxide 30 ml 02/26/18 11:15 Mylanta Oral Suspension - PO Q4H PRN DYSPEPSIA Aspirin 81 mg 02/26/18 22:00 03/01/18 10:14 Ecotrin - PO 81 mg BID JOSE Administration Hydrochlorothiazide 25 mg 02/27/18 10:00 03/01/18 10:14 Hctz - PO 25 mg DAILY JOSE Administration Lorazepam 0.5 mg 02/28/18 08:06 Ativan - PO TID PRN ANXIETY Magnesium Hydroxide 30 ml 02/26/18 11:15 Milk Of Magnesia - PO PRN PRN CONSTIPATION Metoprolol Tartrate 12.5 mg 02/28/18 22:00 03/01/18 10:15 Lopressor - PO 12.5 mg BID JOSE Administration Multivitamins/Minerals/Vitamin C 1 tab 02/27/18 10:00 03/01/18 10:15 Tab-A-Vit - PO 1 tab DAILY JOSE Administration Ondansetron HCl 4 mg 02/26/18 11:15 Zofran Injection IVPUSH Q6H PRN NAUSEA Ondansetron HCl 4 mg 02/26/18 13:56 Zofran Injection IVPUSH Q6H PRN NAUSEA AND/OR VOMITING Oxycodone HCl 5 mg 02/26/18 13:56 Roxicodone - PO Q3H PRN PAIN LEVEL 1-5 Oxycodone HCl 10 mg 02/26/18 13:56 03/01/18 02:30 Roxicodone - PO 10 mg Q3H PRN Administration PAIN LEVEL 6-10 Oxycodone HCl 10 mg 02/26/18 22:00 03/01/18 10:14 Oxycontin - PO 03/01/18 13:56 10 mg BID JOSE Administration Pantoprazole Sodium 40 mg 02/27/18 10:00 03/01/18 10:15 Protonix - PO 40 mg DAILY JOSE Administration Senna/Docusate Sodium 2 tablet 02/26/18 22:00 03/01/18 10:14 Pericolace - PO 2 tablet BID JOSE Administration ASSESSMENT/PLAN:
--- NOTE | 2018-03-01 14:41 | DS ---
Physical Exam: SUBJECTIVE: Patient seen and examined OBJECTIVE: Vital Signs Period Temp Pulse Resp BP Sys/Russell Pulse Ox Last 24 Hr 98.3 F-98.9 F 101-117 16-20 109-142/53-67 95-100 PHYSICAL EXAM GENERAL: The patient is awake, alert, and fully oriented, in no acute distress. LUNGS: Breath sounds equal, clear to auscultation HEART: Regular rate and rhythm, S1, S2 ABDOMEN: Soft, nontender, nondistended LEFT LOWER EXTREMITY: SCDs, TEDs, surgical wrap c/d/i; 3/5 flexion/extension foot; sensory intact NEUROLOGICAL: Cranial nerves II through XII grossly intact. Normal speech, steady gait with walker LABS Laboratory Results - last 24 hr 03/01/18 08:15 WBC 13.6 H RBC 4.64 Hgb 9.6 L Hct 31.0 L MCV 66.9 L MCH 20.8 L MCHC 31.1 L RDW 19.6 H Plt Count 345 MPV 8.7 Absolute Neuts (auto) 10.2 Neutrophils % 74.9 Lymphocytes % 15.8 Monocytes % 6.6 Eosinophils % 2.3 Basophils % 0.4 HOSPITAL COURSE: Date of Admission:02/26/18 Date of Discharge: 03/01/18 Hospital course by problem list 52 year-old female with a PMH significant for HTN, anemia, osteoarthritis, s/p right TKR, and GERD. Admitted for right total knee arthroplasty. Osteoarthritis of left knee s/p right total knee arthroplasty on 02/26/[address] Abel George --POD #3 date of discharge --perioperative antibiotics complete --pain well-managed with PO meds --ASA 81mg BID x 6 weeks Anemia --h/h remained stable, no transfusions Hypertension Tachycardia --BP mildly elevated and tachycardic during hospital stay; metoprolol 12.5mg BID was started with recommendation patient continue upon discharge until followup with PCP --metoprolol 25mg x 1 --continued HCTZ GERD --continued Protonix Minutes to complete discharge: 35 Discharge Summary Reason For Visit: OA LEFT KNEE Current Active Problems GERD (gastroesophageal reflux disease) (Acute) Osteoarthritis (Acute) Status post total left knee replacement (Acute) Condition: Improved - Instructions Diet, Activity, Other Instructions: Dr. George Discharge Instructions for Knee Replacement Post Operative Instructions Physical activity Physical Therapist will come to your home for the first 5 days. You will be set up with outpatient PT at your first post-operative visit. Use assistive devices for ambulation at all times. Weight bearing as tolerated on your surgical side. Do not put pillow under knee. May put pillow under heel. Wound care Leave your surgical dressing in place. Do not change the dressing until seen by your surgeon in the office. No baths or showers. Do not submerge your incision. Do not apply any ointments or lotions to your incision. Please call the office if your dressing is soiled/dirty or is falling off. Apply Graduated Compression Stockings (TEDS) to both lower extremities - remove daily for hygiene ONLY. Diet There are no dietary restrictions. Eat healthy, high-fiber foods. Drink 6 to 8 glasses of liquid each day. This will assist in keeping your bowels are regular. Pain management Any pain prescription medication ordered should be taken as prescribed for moderate to severe pain. Do not take additional Tylenol while taking Percocet. Take Aspirin 81 mg two times a day for a total of 6 weeks to prevent blood clots. Call Dr. George for any of the following: Severe pain not relieved by medication Fever of 101 or higher Excessive bleeding or drainage on dressing Inability to urinate If you experience chest pain or shortness of breath, please seek emergency care immediately. ISTOP: Oxycodone-Acetaminophen 5-325mg quantity 120pills for 30day supply filled 01/27/18 (RX written by Dr Abel George) Please call the office at to confirm your post-op appointment for the week following surgery. Your blood pressure and heart rate were elevated during your hospital stay. You were treated with metoprolol 12.5mg twice a day. It is recommended you continue this medication until you follow up with your primary care provider Dr. Calderon. A prescription has been sent to your pharmacy for a 30-day supply. Please see Dr. Calderon within one week of your discharge to have your blood pressure checked. Referrals: Wily George MD [Staff Physician] - Disposition: VNS/HOME HEALTH CARE - Home Medications Comprehensive Discharge Medication List: Ambulatory Orders Hydrochlorothiazide [Hctz -] 25 mg PO DAILY 07/01/17 Oxycodone HCl 5 mg PO Q6H #28 tablet MDD 4 12/22/17 Aspirin Coated [Ecotrin -] 81 mg PO BID #90 tablet.ec 02/28/18 Docusate Sodium [Colace -] 100 mg PO BID #20 capsule 02/28/18 Metoprolol Tartrate [Lopressor -] 12.5 mg PO BID #60 tablet 03/01/18 This patient is new to me today: No Emergency Visit: No Critical Care patient: No - Discharge Referral Referred to [facility] No
[2018-03-01 14:45] VITALS: TEMP 98.6
[2018-03-01 16:42] VITALS: BP 130/70; PULSE 106
--- NOTE | 2018-03-03 13:06 | PATH ---
Surgical Pathology Report Patient Name: ARAM ZARAGOZA Med. Rec. #: [id number] /Age/Gender: 1965 (Age: 52) / F Account: [id number] [facility] Taken: 02/26/2018 Received: 02/26/2018 Reported: 03/03/2018 Physicians: Abel George M.D. Specimen(s) Received LEFT KNEE BONE Clinical History Osteoarthritis left knee Final Diagnosis BONE, LEFT KNEE, TOTAL KNEE REPLACEMENT: DEGENERATIVE JOINT DISEASE. Electronically Signed Sarah Velasco M.D. Gross Description Received in formalin labeled "left knee bone," is a 12.5 x 11.0 x 2.0 cm aggregate of multiple portions of bone and soft tissue. The tibial plateau measures 8.2 x 5.7 x 1.6 cm. There are no areas of eburnation identified. The articular surfaces are arrieta-yellow and focally granular. The underlying trabecular bone is yellow and hard. [employer] sections are submitted in one cassette, following decalcification. /02/27/2018 [facility]02/27/2018
== END 2018-03-01 17:37 | disposition home health service (06) | DRG 470 ==
LOC: FM/S 06:00
PROVIDERS: ADMIT Orthopaedic Surgery Orthopaedic Surgery of the Spine; ATTEND Orthopaedic Surgery Orthopaedic Surgery of the Spine
PROC: 0SRD0J9 Replacement of Left Knee Joint with Synthetic Substitute, Cemented, Open Approach (ICD-10-PCS; principal; 2018-02-26 09:21)
DX: M17.12 Unilateral primary osteoarthritis, left knee (principal); I10 Essential (primary) hypertension; D64.9 Anemia, unspecified; K21.9 Gastro-esophageal reflux disease without esophagitis; R00.0 Tachycardia, unspecified; I95.9 Hypotension, unspecified
CPT/HCPCS: 36415; 70450-TC; 73560-TC-LT-FY; 80048; 83735; 84703; 85025; 85027; 88304-TC; 88311-TC; 93005; 93970-TC; 94760; 97116-GP; 97162-GP; J0131

== ENCOUNTER 2018-03-16 17:32 | Emergency (ER) | payer BC ==
[2018-03-16 17:49] VITALS: PULSE 101; TEMP 98.4; BMI 39.4
--- NOTE | 2018-03-16 17:58 | PDOC ---
History of Present Illness - General Chief Complaint: Revisit,Wound Recheck Stated Complaint: LEFT KNEE WOUND INFECTION Time Seen by Provider: 03/16/18 17:36 History Source: Patient Exam Limitations: No Limitations - History of Present Illness Initial Comments: 03/16/18 17:42 [id number] with h/o HTN, anemia, GERD, and who is now POD #18 from left knee replacement with Dr. Abel George for osteoarthritis, who p/w left knee increased swelling, warmth, drainage from the surgical incision, mild dehiscence of the surgical incision, and mild tenderness relative to a week ago. She denies any f/c/n/v/d/c, streaking redness, malodorous drainage, difficulty walking or ranging the joint, or other symptoms. She has been scrubbing the skin around the wound with hibiclens daily, and putting bacitracin on it. Her BP is elevated today and she explains that while she was in the hospital for the knee replacement, she was switched from her prior HCTZ 25 mg daily to metoprolol 12.5 mg bid, and she has been taking only the metoprolol since that time. However, review of her hospital records reveals that the intent was to add on the metoprolol, not to switch medications. She has not followed up with her PCP since that time, and her first f/u appointment with Dr. George is scheduled for 4 days from now. Past History - Past Medical History Allergies/Adverse Reactions: Allergies Allergy/AdvReac Type Severity Reaction Status Date / Time No Known Allergies Allergy Verified 03/16/18 17:36 Home Medications: Ambulatory Orders Oxycodone HCl 5 mg PO Q6H #28 tablet MDD 4 12/22/17 Aspirin Coated [Ecotrin -] 81 mg PO BID #90 tablet.ec 02/28/18 Docusate Sodium [Colace -] 100 mg PO BID #20 capsule 02/28/18 Metoprolol Tartrate [Lopressor -] 12.5 mg PO BID #60 tablet 03/01/18 Anemia: Yes Asthma: No Cancer: No Cardiac Disorders: No CVA: No COPD: No CHF: No Dementia: No Diabetes: No GI Disorders: No Disorders: No HTN: Yes Hypercholesterolemia: No Liver Disease: No Seizures: No Thyroid Disease: No - Surgical History Abdominal Surgery: No Appendectomy: No Cardiac Surgery: No Cholecystectomy: No Lung Surgery: No Neurologic Surgery: No Orthopedic Surgery: Yes (Bilateral Knee Arthroscopy, RIGHT TOTAL KNEE 11/2017) - Suicide/Smoking/Psychosocial Hx Smoking History: Never smoked Have you smoked in the past 12 months: No Hx Alcohol Use: No Drug/Substance Use Hx: No Substance Use Type: None Hx Substance Use Treatment: No Review of Systems - Review of Systems Able to Perform ROS?: Yes Comments:: 03/16/18 18:16 GEN: no fever, chills, malaise, generalized weakness, or weight change HEENT: no ear pain, sore throat, vision change, or eye pain CV: no chest pain, palpitations, lightheadedness, syncope, or edema RESP: no cough, wheezing, or SOB GI: no abdominal pain, nausea, vomiting, diarrhea, constipation, or white/black/ bloody stool : no dysuria, hematuria, incontinence, retention, bleeding, or discharge MSK: left knee swelling/mild pain, no neck/back pain, or muscle weakness/pain NEURO: no headache, seizure, vertigo, numbness, tingling, or focal weakness PSYCH: no substance use, no behavior change SKIN: surgical incision slightly opening and drainage, no jaundice, no rash ROS otherwise negative except as noted in HPI *Physical Exam - Vital Signs 03/16/18 18:16 Initial Vital Signs Temp Pulse Resp BP Pulse Ox 98.4 F 101 H 18 200/140 H 100 03/16/18 17:36 03/16/18 17:36 03/16/18 17:36 03/16/18 17:36 03/16/18 17:36 ED Treatment Course - LABORATORY CBC & Chemistry Diagram: 03/16/18 18:15 03/16/18 18:15 Medical Decision Making - Medical Decision Making 03/16/18 18:11 Pt p/w knee pain and swelling 18 days post-op from knee replacement. Initial Vital Signs Temp Pulse Resp BP Pulse Ox 98.4 F 101 H 18 200/140 H 100 03/16/18 17:36 03/16/18 17:36 03/16/18 17:36 03/16/18 17:36 03/16/18 17:36 Exam: As noted in Physical Exam section. DDX IBNLT: effusion (e.g. 2/2 osteoarthritis, overuse), gout, pseudogout, prepatellar bursitis, septic arthritis, hemarthrosis, edema (e.g. from CHF exacerbation or PVD), gonorrhea, necrotizing soft tissue infection, DVT, superficial venous thrombosis, popliteal cyst (wwo rupture), etc. W/U ordered: CBCD BMP ESR CRP XR knee to r/o gas/effusion. TX ordered: HCTZ 25 mg (patient's home dose she has not been taking) Laboratory Tests 03/16/18 18:15 Sodium 136 Potassium 3.5 Chloride 104 Carbon Dioxide 22 Anion Gap 10 BUN 13 Creatinine 0.8 Creat Clearance w eGFR > 60 Random Glucose 110 H Calcium 9.4 03/16/18 19:00 Patient's care is endorsed to Dr. Soliman at the end of my shift pending remaining lab work. *DC/Admit/Observation/Transfer Diagnosis at time of Disposition: Knee pain, left Qualifiers: Chronicity: unspecified Qualified Code(s): M25.562 - Pain in left knee - Discharge Dispostion Condition at time of disposition: Stable - Referrals Referrals: Abel George MD [Primary Care Provider] - - Patient Instructions - Post Discharge Activity
--- NOTE | 2018-03-16 18:00 | PDOC ---
Attending Attestation - Resident Resident Name: JazSloane - ED Attending Attestation I have performed the following: I have examined & evaluated the patient, The case was reviewed & discussed with the resident, I agree w/resident's findings & plan - HPI HPI: 03/16/18 18:26 [id number] with h/o HTN, anemia, GERD, arthritis and who is now POD #18 from total left knee replacement with Dr. Abel George for osteoarthritis, who p/w left knee increased swelling, warmth, nonpurulent drainage from the surgical incision , mild dehiscence of the surgical incision x 1 week, but no f/c, weakness or paresthesias. Has been ambulatory and able to bear weight. Has been cleaning with hibiclens and topical bacitracin. Also has been miscommunicated with antihypertensive regimen, has only been taking metoprolol (and not continuing her HCTZ) during hospitalization she also had HTN noted, completed perioperative abx only at that time. 03/16/18 19:02 03/16/18 19:02 - Physicial Exam PE: 03/16/18 18:54 General: NAD, nontoxic Vascular; 2+ DP pulses. Lower Extremity: soft compartment. 5/5 plantar and dorsiflexion. SILT. no laxity at knee jt. 2+ DP pulses bilaterally. old vertical scar to right anterior knee left knee with vertical scar, mild wound dehiscence, no active purulence or drainage. +scarring present. +left knee effusion and swelling. some discoloration, but no warmth or erythema or tenderness. no peripheral edema MSK: MILNER x4, FROM in all extrem. no calf tenderness. - Medical Decision Making 03/16/18 18:54 hpi as documented VS notable for hypertension, has h/o htn and has not taken hctz since discharge (on metoprolol) DDx. arthritis, knee effusion, knee sprain. Haley's cyst. post op septic arthritis/joint effusion/infection. osteomyelitis. clinically considered but doubt septic arthritis or gout/infection, as no skin findings and chronicity of sx w/o systemic findings. no palp knee effusion on exam to warrant tap. no posterior popliteal or deep venous system involvement to suggest DVT or Haley's cyst/rupture. basic labs and lytes_pending Xray knee with hardware and plating noted, no bony erosions noted with joint alignment maintained. clinically does not appear to be DVT or septic joint. no joint erythema or warmth or discharge. some dehiscence noted from excessive scrubbing and motion ortho cs to Dr George who performed surgery after labs and workup. 03/16/18 18:56 03/16/18 18:59 03/16/18 19:00
[2018-03-16] MEDS ORDERED: HYDROCHLOROTHIAZIDE 25 MG TABLET (FP) PO ONE (18:06)
[2018-03-16] MEDS ORDERED: HYDROCHLOROTHIAZIDE 25 MG TABLET (FP) ONE (18:07)
[2018-03-16 18:42] LABS: ANION GAP 10 MMOL/L (8-16); BLOOD UREA NITROGEN 13 mg/dl (7-18); CALCIUM 9.4 mg/dl (8.5-10); CHLORIDE 104 mmol/L (98-107); CO2 22 mmol/L (21-32); CREATININE 0.8 mg/dl (0.55-1.3); GLUCOSE,RANDOM 110 mg/dl (74-106); POTASSIUM 3.5 mmol/L (3.5-5.1); SODIUM 136 mmol/L (136-145)
[2018-03-16 18:47] LABS: HEMATOCRIT 35.5 % (32.4-45.2)
[2018-03-16] MEDS ORDERED: METOPROLOL TARTRATE 25 MG TABLET (FP) PO ONE (19:10)
[2018-03-16] MEDS ORDERED: METOPROLOL TARTRATE 50 MG TABLET (FP) ONE (19:21)
[2018-03-16 19:23] LABS: ADD RBC MORPHOLOGY YES; BASO % 0.7 % (0-2.0); EOS % 6.4 % (0-4.5); HEMOGLOBIN 10.7 GM/dl (10.7-15.3); LYMPH % 24.6 % (8-40); MCH 20.2 pg (25.7-33.7); MEAN CELL VOLUME 67.2 fl (80-96); MONO % 4.4 % (3.8-10.2); NEUT % 63.9 % (42.8-82.8); PLATELET COUNT 761 K/MM3 (134-434); RBC 5.29 M/mm3 (3.60-5.2); RDW 19.8 % (11.6-15.6); WHITE BLOOD COUNT 7.2 K/mm3 (4.0-10.8)
[2018-03-16 19:30] LABS: ANISOCYTOSIS 2+; TEAR DROP CELLS 1+
[2018-03-16 19:31] LABS: OVALOCYTE 2+; PLATELET ESTIMATE INCREASED
[2018-03-16 19:32] VITALS: BP 197/118
[2018-03-16] MEDS ORDERED: AMOX TR/POT CLAV 875MG/125MG TABLETS (FP) PO ONE (19:46)
--- NOTE | 2018-03-16 19:49 | PDOC ---
*Physical Exam - Vital Signs Last Vital Signs Temp Pulse Resp BP Pulse Ox 98.4 F 101 H 18 197/118 H 100 03/16/18 17:36 03/16/18 17:36 03/16/18 17:36 03/16/18 19:25 03/16/18 17:36 ED Treatment Course - LABORATORY CBC & Chemistry Diagram: 03/16/18 18:15 03/16/18 18:15 - ADDITIONAL ORDERS Additional order review: Laboratory Results 03/16/18 18:15 Sodium 136 Potassium 3.5 Chloride 104 Carbon Dioxide 22 Anion Gap 10 BUN 13 Creatinine 0.8 Creat Clearance w eGFR > 60 Random Glucose 110 H Calcium 9.4 C-Reactive Protein 0.9 H 03/16/18 18:15 RBC 5.29 H MCV 67.2 L MCHC 30.0 L RDW 19.8 H MPV 8.0 Neutrophils % 63.9 Lymphocytes % 24.6 Monocytes % 4.4 Eosinophils % 6.4 H Basophils % 0.7 - Medications Given in the ED: ED Medications Discontinued Medications Generic Name Dose Route Start Last Admin Trade Name Freq PRN Reason Stop Dose Admin Hydrochlorothiazide 25 mg 03/16/18 18:06 03/16/18 18:10 Hctz - PO 03/16/18 18:07 25 mg ONCE ONE Administration Metoprolol Tartrate 25 mg 03/16/18 19:10 03/16/18 19:25 Lopressor - PO 03/16/18 19:11 25 mg ONCE ONE Administration Progress Note - Progress Note Progress Note: Care of this patient was transferred to md from Dr. langston at 1900 hrs. Patient is a 52-year-old female who is status post left knee replacement with aggressive physical therapy that is resulted in some mild wound adhesives and inflammation of the knee. Patient had a workup which was negative for any acute infectious process however and discussions with patient's private orthopedist it was felt that she would benefit from a short course of Augmentin so she was started on Augmentin. Patient does have close follow-up with her orthopedist for next week. Patient will keep that appointment. Patient discharged home *DC/Admit/Observation/Transfer Diagnosis at time of Disposition: Essential hypertension Knee pain, left Qualifiers: Chronicity: unspecified Qualified Code(s): M25.562 - Pain in left knee - Discharge Dispostion Disposition: HOME Condition at time of disposition: Stable Decision to Admit order: No - Prescriptions Prescriptions: Amoxicillin/Potassium Clav [Augmentin 875-125 Tablet] 1 each PO BID #10 tablet - Referrals Referrals: Abel George MD [Primary Care Provider] - - Patient Instructions Additional Instructions: Decrease the intensity of your physical therapy as you are putting a lot of pressure on the wound and the knee so go a little less aggressive to give it time to heal. Take Augmentin 1 tablet twice a day for 5 days I sent a prescription to your pharmacy. Keep your appointment with your orthopedist on . Your blood pressure was also elevated while you're here in the ED so it is important that you take both your metoprolol and her hydrochlorothiazide as prescribed. Return to the emergency department immediately with ANY new, persistent or worsening symptoms. Continue any medications as previously prescribed by your physician. You should follow up with your primary doctor as soon as possible regarding today's emergency department visit. . Please make sure your doctor reviews the results of your emergency evaluation. Thank you for coming to the Emergency Department today for your care. It was a pleasure to see you today. Please note that your evaluation is INCOMPLETE until you follow-up with your doctor. - Post Discharge Activity
[2018-03-16] MEDS ORDERED: AMOX TR/POT CLAV 875MG/125MG TABLETS (FP) ONE (19:50)
[2018-03-16] MEDS ORDERED: IBUPROFEN 400 MG TABLET (FP) PO ONE ×2 (19:54→19:55)
== END 2018-03-16 20:02 | disposition home or self-care (01) ==
LOC: FER 17:32
DX: M25.562 Pain in left knee (principal); I10 Essential (primary) hypertension; K21.9 Gastro-esophageal reflux disease without esophagitis
CPT/HCPCS: 36415; 73562-TC-LT-FY; 80048; 85025; 85651; 86140; 99281-25